=== PATIENT | female | born 1935 | race Caucasian/White ===

== ENCOUNTER 2024-07-07 11:51 | Observation (INO) | payer OTHER ==
--- NOTE | 2024-07-07 12:23 | ERPHSYRPT ---
- History of Present Illness Time Seen by Provider: 07/07/24 12:22 Source: patient, family Exam Limitations: no limitations Patient Subjective Stated Complaint: episode of lightheadedness 30 mins ago. see triage nursing assessment for further details. Triage Nursing Assessment: . Physician History: Patient presents to the ED after a near-syncopal episode this morning while eating breakfast. Patient was sitting on a bar stool when they felt like they were going to fall off. A witness reports seeing the patient with a glazed-over look, unresponsiveness, and repetitive speech, as if reading from their phone. This episode lasted approximately three minutes, followed by a few minutes of confusion. The patient denies any associated weakness, dysphagia, dysarthria, chest pain, abdominal pain, nausea, or recent illness. Timing/Duration: today Severity: mild Modifying Factors: Improves With: rest Associated Symptoms: No nausea, No vomiting, No abdominal pain, No shortness of breath, No diaphoresis, No cough, No chest pain, No fever, No headaches, No loss of appetite, No malaise, No syncope, No weakness Allergies/Adverse Reactions: No Known Drug Allergies Allergy (Unverified 07/07/24 12:11) Hx Influenza Vaccination/Date Given: Yes Travel Risk - International Travel Have you traveled outside of the country in past 3 weeks: No - Emerging Infectious Disease Are you exhibiting symptoms associated with any current EIDs: No - Review of Systems All Other Systems: Reviewed and Negative - Past Medical History Pertinent Past Medical History: Yes Neurological History: No Pertinent History Cardiac History: Myocardial Infarction (PR) Respiratory History: No Pertinent History Musculoskeletal History: No Pertinent History GI Medical History: No Pertinent History History: No Pertinent History Psycho-Social History: No Pertinent History Female Reproductive Disorders: No Pertinent History - Past Surgical History Past Surgical History: Yes Cardiac: Cardiac Stent Gastrointestinal: No Pertinent History Genitourinary: No Pertinent History Musculoskeletal: Orthopedic Surgery Other Surgical History: pins in one shoulder, unsure which - Social History Smoking Status: Never smoker Exposure to second hand smoke: No Drug Use: none - Nursing Vital Signs Nursing Vital Signs: Initial Vital Signs Pulse Rate 85 07/07/24 12:00 Respiratory Rate 21 07/07/24 12:00 Blood Pressure 207/88 07/07/24 12:00 O2 Sat by Pulse Oximetry 91 L 07/07/24 12:00 Pain Scale Pain Intensity 5 - Physical Exam General Appearance: no apparent distress, thin Eye Exam: PERRL/EOMI, eyes nml inspection Ears, Nose, Throat Exam: normal ENT inspection Neck Exam: normal inspection, supple, full range of motion Respiratory Exam: normal breath sounds, lungs clear, airway intact, No res piratory distress Cardiovascular Exam: regular rate/rhythm, normal heart sounds, capillary refill <2 sec, No edema Gastrointestinal/Abdomen Exam: soft, No tenderness, No distention, No mass, No guarding, No rebound Extremity Exam: swelling, No tenderness Neurologic Exam: alert, oriented x 3, cooperative, sample sawyer II-XII nml as tested, normal mood/affect, nml cerebellar function, sensation nml, No confusion Skin Exam: normal color, warm, dry, No rash SpO2 Interpretation: normal SpO2: 98 O2 Delivery: Room Air - Course Nursing assessment & vital signs reviewed: Yes EKG Interpreted by Me: RATE (93), Sinus Rhythm, NORMAL AXIS, NORMAL INTERVALS, Other (repolarizastion abnormality, old inferior infarct) Ordered Tests: Active Orders 24 hr Category Date Time Status EKG-ER Only STAT Care 07/07/24 12:28 Active IV Insertion STAT Care 07/07/24 12:[address] ANGIOGRAPHY NECK [CT] Stat Exams 07/07/24 14:17 Completed CTA HEAD W AND/OR WO CONTRAST [CT] Stat Exams 07/07/24 14:17 Completed CBC W DIFF Stat Lab 07/07/24 12:40 Completed CK-Creatinine Phosphokinase Stat Lab 07/07/24 13:00 Completed CMP Stat Lab 07/07/24 13:00 Completed CULTURE,URINE Stat Lab 07/07/24 13:04 Received Lactic Acid Routine Lab 07/07/24 13:06 Completed Lactic Acid Stat Lab 07/07/24 12:41 Completed MAGNESIUM Stat Lab 07/07/24 13:00 Completed POCT GLUCOSE Stat Lab 07/07/24 12:02 Completed POCT GLUCOSE Stat Lab 07/07/24 12:46 Completed TROPONIN Q4H Lab 07/07/24 13:00 Completed TROPONIN Q4H Lab 07/07/24 16:45 Ordered TROPONIN Q4H Lab 07/07/24 20:45 Ordered TSH, 3RD Generation Stat Lab 07/07/24 13:00 Completed Medication Summary Discontinued Medications Generic Name Dose Route Start Last Admin Trade Name Freq PRN Reason Stop Dose Admin Sodium Chloride 1,000 mls @ 999 mls/hr 07/07/24 12:28 07/07/24 14:03 Sodium Chloride 0.9% 1000 Ml IV 07/07/24 13:28 Infused .Q1H1M STA Infusion Sodium Chloride Confirm 07/07/24 12:43 Sodium Chloride 0.9% 1000 Ml Administered 07/07/24 12:44 Dose 1,000 mls @ ud .ROUTE .STK-MED ONE Ceftriaxone Sodium 1 gm in 100 mls @ 200 mls/hr 07/07/24 14:10 07/07/24 14:27 Rocephin 1 Gm / 100 Ml Nacl IV 07/07/24 14:39 200 mls/hr STAT ONE 200 mls/hr Administration Ceftriaxone Sodium Confirm 07/07/24 14:25 Rocephin 1 Gm / 100 Ml Nacl Administered 07/07/24 14:26 Dose 1 gm in 100 mls @ ud IV .STK-MED ONE Lab/Rad Data: Laboratory Result Diagrams 07/07/24 12:40 07/07/24 13:00 Laboratory Results 07/07/24 07/07/24 07/07/24 Range/Units 13:06 13:04 13:00 WBC (3.98-10.04) x10^3/uL RBC (3.93-5.22) x10^6/uL Hgb (11.2-15.7) g/dL Hct (34.1-44.9) % MCV (79.4-94.8) fL MCH (25.6-32.2) pg MCHC (32.2-35.5) g/dL RDW (11.7-14.4) % Plt Count (182-369) x10^3/uL Gran % (34.0-71.1) % Immature Gran % (Auto) (0.001-0.429) % Nucleat RBC Rel Count (0.00-0.2) % Eos # (Auto) (0.04-0.36) x10^3/uL Immature Gran # (Auto) (0.001-0.031) x10^3u/L Absolute Lymphs (auto) (1.18-3.74) x10^3/uL Absolute Monos (auto) (0.24-0.86) x10^3/uL Absolute Nucleated RBC (0.00-0.012) x10^3u/L Lymphocytes % (19.3-51.7) % Monocytes % (4.7-12.5) % Eosinophils % (0.7-5.8) % Basophils % (0.1-1.2) % Absolute Granulocytes (1.56-6.13) x10^3/uL Basophils # (0.01-0.08) x10^3/uL Sodium (135-145) mmol/L Potassium (3.5-5.1) mmol/L Chloride (98-107) mmol/L Carbon Dioxide (22-30) mmol/L Anion Gap (5-15) MEQ/L BUN (7-17) mg/dL Creatinine (0.52-1.04) mg/dL Estimated GFR ML/MIN Glucose (74-106) mg/dL POC Glucometer (74 to 106) mg/dL Lactic Acid 1.5 (0.4-2.0) Calcium (8.4-10.2) mg/dL Magnesium (1.6-2.3) mg/dL Total Bilirubin (0.2-1.3) mg/dL AST (14-36) U/L ALT (0-35) U/L Alkaline Phosphatase (38-126) U/L Creatine Kinase (30-135) U/L Troponin I (0.000-0.033) ng/mL Serum Total Protein (6.3-8.2) g/dL Albumin (3.5-5.0) g/dL Free T4 1.34 (0.78-2.19) ng/dL TSH 3rd Generation (0.470-4.680) mIU/L Urine Color YELLOW (YELLOW) Urine Appearance CLEAR (CLEAR) Urine pH 6.0 (5-6) Ur Specific [place] 1.020 (1.005-1.025) POC Urine Protein Conf TRACE A (Negative) Urine Ketones NEGATIVE (NEGATIVE) Urine Nitrite NEGATIVE (NEGATIVE) Urine Bilirubin NEGATIVE (NEGATIVE) Urine Urobilinogen 0.2 (0-1) mg/dL Urine Leukocytes SMALL A (NEGATIVE) Urine RBC TRACE-INTACT A (0-5) [place]/ul Urine Microscopic RBC 0-2 (0-5) /HPF Urine Microscopic WBC 3-5 (0-5) /HPF Ur Epithelial Cells Few (None Seen) /HPF U Non-Squamous Epi Cells None Seen (None Seen) /HPF Urine Bacteria Few A (None Seen) /HPF Urine Culture Reflexed YES (NO) Urine Glucose NEGATIVE (NEGATIVE) mg/dL 07/07/24 07/07/24 07/07/24 Range/Units 13:00 13:00 12:46 WBC (3.98-10.04) x10^3/uL RBC (3.93-5.22) x10^6/uL Hgb (11.2-15.7) g/dL Hct (34.1-44.9) % MCV (79.4-94.8) fL MCH (25.6-32.2) pg MCHC (32.2-35.5) g/dL RDW (11.7-14.4) % Plt Count (182-369) x10^3/uL Gran % (34.0-71.1) % Immature Gran % (Auto) (0.001-0.429) % Nucleat RBC Rel Count (0.00-0.2) % Eos # (Auto) (0.04-0.36) x10^3/uL Immature Gran # (Auto) (0.001-0.031) x10^3u/L Absolute Lymphs (auto) (1.18-3.74) x10^3/uL Absolute Monos (auto) (0.24-0.86) x10^3/uL Absolute Nucleated RBC (0.00-0.012) x10^3u/L Lymphocytes % (19.3-51.7) % Monocytes % (4.7-12.5) % Eosinophils % (0.7-5.8) % Basophils % (0.1-1.2) % Absolute Granulocytes (1.56-6.13) x10^3/uL Basophils # (0.01-0.08) x10^3/uL Sodium 140 (135-145) mmol/L Potassium 4.7 (3.5-5.1) mmol/L Chloride 102 (98-107) mmol/L Carbon Dioxide 30 (22-30) mmol/L Anion Gap 13.2 (5-15) MEQ/L BUN 17 (7-17) mg/dL Creatinine 0.75 (0.52-1.04) mg/dL Estimated GFR 77.0 ML/MIN Glucose 149 H (74-106) mg/dL POC Glucometer 171 H (74 to 106) mg/dL Lactic Acid (0.4-2.0) Calcium 8.8 (8.4-10.2) mg/dL Magnesium 1.9 (1.6-2.3) mg/dL Total Bilirubin 0.40 (0.2-1.3) mg/dL AST 31 (14-36) U/L ALT 19 (0-35) U/L Alkaline Phosphatase 54 (38-126) U/L Creatine Kinase 25 L (30-135) U/L Troponin I 0.015 (0.000-0.033) ng/mL Serum Total Protein 6.5 (6.3-8.2) g/dL Albumin 4.0 (3.5-5.0) g/dL Free T4 (0.78-2.19) ng/dL TSH 3rd Generation 1.606 (0.470-4.680) mIU/L Urine Color (YELLOW) Urine Appearance (CLEAR) Urine pH (5-6) Ur Specific [place] (1.005-1.025) POC Urine Protein Conf (Negative) Urine Ketones (NEGATIVE) Urine Nitrite (NEGATIVE) Urine Bilirubin (NEGATIVE) Urine Urobilinogen (0-1) mg/dL Urine Leukocytes (NEGATIVE) Urine RBC (0-5) [place]/ul Urine Microscopic RBC (0-5) /HPF Urine Microscopic WBC (0-5) /HPF Ur Epithelial Cells (None Seen) /HPF U Non-Squamous Epi Cells (None Seen) /HPF Urine Bacteria (None Seen) /HPF Urine Culture Reflexed (NO) Urine Glucose (NEGATIVE) mg/dL 07/07/24 07/07/24 07/07/24 Range/Units 12:41 12:40 12:02 WBC 5.5 (3.98-10.04) x10^3/uL RBC 5.25 H (3.93-5.22) x10^6/uL Hgb 11.2 (11.2-15.7) g/dL Hct 37.8 (34.1-44.9) % MCV 72.0 L (79.4-94.8) fL MCH 21.3 L (25.6-32.2) pg MCHC 29.6 L (32.2-35.5) g/dL RDW 19.9 H (11.7-14.4) % Plt Count 235 (182-369) x10^3/uL Gran % 51.5 (34.0-71.1) % Immature Gran % (Auto) 0.2 (0.001-0.429) % Nucleat RBC Rel Count 0.0 (0.00-0.2) % Eos # (Auto) 0.17 (0.04-0.36) x10^3/uL Immature Gran # (Auto) 0.01 (0.001-0.031) x10^3u/L Absolute Lymphs (auto) 1.80 (1.18-3.74) x10^3/uL Absolute Monos (auto) 0.67 (0.24-0.86) x10^3/uL Absolute Nucleated RBC 0.00 (0.00-0.012) x10^3u/L Lymphocytes % 32.6 (19.3-51.7) % Monocytes % 12.1 (4.7-12.5) % Eosinophils % 3.1 (0.7-5.8) % Basophils % 0.5 (0.1-1.2) % Absolute Granulocytes 2.84 (1.56-6.13) x10^3/uL Basophils # 0.03 (0.01-0.08) x10^3/uL Sodium (135-145) mmol/L Potassium (3.5-5.1) mmol/L Chloride (98-107) mmol/L Carbon Dioxide (22-30) mmol/L Anion Gap (5-15) MEQ/L BUN (7-17) mg/dL Creatinine (0.52-1.04) mg/dL Estimated GFR ML/MIN Glucose (74-106) mg/dL POC Glucometer 138 H (74 to 106) mg/dL Lactic Acid 2.7 H (0.4-2.0) Calcium (8.4-10.2) mg/dL Magnesium (1.6-2.3) mg/dL Total Bilirubin (0.2-1.3) mg/dL AST (14-36) U/L ALT (0-35) U/L Alkaline Phosphatase (38-126) U/L Creatine Kinase (30-135) U/L Troponin I (0.000-0.033) ng/mL Serum Total Protein (6.3-8.2) g/dL Albumin (3.5-5.0) g/dL Free T4 (0.78-2.19) ng/dL TSH 3rd Generation (0.470-4.680) mIU/L Urine Color (YELLOW) Urine Appearance (CLEAR) Urine pH (5-6) Ur Specific [place] (1.005-1.025) POC Urine Protein Conf (Negative) Urine Ketones (NEGATIVE) Urine Nitrite (NEGATIVE) Urine Bilirubin (NEGATIVE) Urine Urobilinogen (0-1) mg/dL Urine Leukocytes (NEGATIVE) Urine RBC (0-5) [place]/ul Urine Microscopic RBC (0-5) /HPF Urine Microscopic WBC (0-5) /HPF Ur Epithelial Cells (None Seen) /HPF U Non-Squamous Epi Cells (None Seen) /HPF Urine Bacteria (None Seen) /HPF Urine Culture Reflexed (NO) Urine Glucose (NEGATIVE) mg/dL - Progress Progress: improved Progress Note: Differential Diagnosis: Transient ischemic attack Orthostatic hypotension Hypoglycemia Other Due to the chief complaint, the following diagnoses were also considered but the signs/symptoms, physical exam, and data points are not consistent with any of the following: Rationale for Diagnosis and Decision Making: Patient presented with a near- syncopal episode. Based on the history, physical exam, and normal laboratory workup including cardiac enzymes, a transient ischemic attack, orthostatic hypotension, and hypoglycemia were considered. The EKG was consistent with prior PR. Later, the patient developed weakness and a urinalysis showed signs of a UTI. Given the patient's acute weakness and potential UTI, the decision was made to administer one dose of IV antibiotics in the ED and discharge the patient home on oral antibiotics. Shared decision making was utilized with the patient and family, and they agreed with the plan. The patient was discharged. Independent Test Interpretations: EKG Interpretation: EKG consistent with prior PR. Labs: Hemoglobin, WBC, platelets, electrolytes (including potassium and magnesium), renal function, cardiac enzymes, and thyroid function tests are all within normal limits. Urinalysis shows small amount of bacteria and leukocytes. Assessment: 89-year-old patient presenting with new-onset weakness, significant enough to impair ambulation to the restroom. Patient reports feeling weak. Den ies dyspnea, cough, or productive sputum. Neurologic exam is normal, without focal deficits. Differential diagnosis includes UTI. Although urinalysis findings are present, provider is not convinced this fully explains the patient's weakness. No evidence of stroke. Patient reports urinary urgency with inability to void, which may be consistent with a UTI. Plan: Given patient's acute weakness and potential UTI, decision made to administer one dose of IV antibiotics in the ED. Patient will be discharged home on oral antibiotics. Family advised to return if patient's condition worsens or new symptoms develop. Patient and family agree with plan. When patient was getting up to use commode she was unstable and drifting to the side, with her abrupt onset on sxs today and lack of true cause on labs today we will order a CTA head/neck to r/o posterior stroke. 07/07/24 16:25 CTA head/neck neg for acute CVA, old infarcts noted. No other acute findings. Counseled pt/family regarding: lab results, diagnosis, need for follow-up, rad results - Departure Departure Disposition: Home Clinical Impression: UTI (urinary tract infection), History of acoustic neuroma, Confusion, Difficulty initiating walking Condition: Good Critical Care Time: No Referrals: DOCTOR,NO FAMILY [Primary Care Provider] - Follow up/PCP as directed Instructions: Urinary tract infections in adults Prescriptions: Cefdinir 300 mg PO BID 7 Days #14 cap
[2024-07-07 12:43] LABS: Absolute Neutrophil Ct (ANC) 2.84 x10^3/uL (1.56-6.13); BASOPHIL % 0.5 % (0.1-1.2); Basophil (Absolute #) 0.03 x10^3/uL (0.01-0.08); Eosinophil % 3.1 % (0.7-5.8); Eosinophil (Absolute #) 0.17 x10^3/uL (0.04-0.36); Hematocrit 37.8 % (34.1-44.9); Hemoglobin 11.2 g/dL (11.2-15.7); IMMATURE GRAN # 0.01 x10^3u/L (0.001-0.031); IMMATURE GRAN % 0.2 % (0.001-0.429); Lymphocytes % 32.6 % (19.3-51.7); Mean Corpuscular Hemoglobin 21.3 pg (25.6-32.2); Mean Corpuscular Hgb Concent. 29.6 g/dL (32.2-35.5); Monocyte (Absolute #) 0.67 x10^3/uL (0.24-0.86); Monocytes % 12.1 % (4.7-12.5); Neutrophil % 51.5 % (34.0-71.1); Platelet Count 235 x10^3/uL (182-369); Red Blood Count 5.25 x10^6/uL (3.93-5.22); Red Cell Distribution Width 19.9 % (11.7-14.4); White Blood Count 5.5 x10^3/uL (3.98-10.04)
[2024-07-07] MEDS ORDERED: Sodium Chloride 0.9% 1000 ML 1,000 ML ONE (12:43)
[2024-07-07] MEDS: Sodium Chloride 0.9% 1000 ML 1,000 ML IV STA (12:44)
[2024-07-07 13:27] LABS: Appearance CLEAR (CLEAR); Bilirubin NEGATIVE (NEGATIVE); Glucose NEGATIVE (NEGATIVE); Ketones NEGATIVE (NEGATIVE); Nitrite NEGATIVE (NEGATIVE); Protein,Urine Dip TRACE (Negative); RBC TRACE-INTACT Ery/ul (0-5); Urobilinogen 0.2 mg/dL (0-1)
[2024-07-07 13:29] LABS: ANION GAP 13.2 MEQ/L (5-15); BILIRUBIN,TOTAL 0.4 mg/dL (0.2-1.3); Calcium 8.8 mg/dL (8.4-10.2); Creatinine 1 0.75 mg/dL (0.52-1.04); MAGNESIUM 1.9 mg/dL (1.6-2.3); Potassium 4.7 mmol/L (3.5-5.1); Total Protein 6.5 g/dL (6.3-8.2)
[2024-07-07 13:40] LABS: Epithelial Cells Few /HPF (None Seen); RBC 0-2 /HPF (0-5)
[2024-07-07 13:41] LABS: Bacteria Few /HPF (None Seen); Non-Squamous Epithelial Cells None Seen /HPF (None Seen)
[2024-07-07 13:41] LABS: TROPONIN 0.015 ng/mL (0.000-0.033)
[2024-07-07 13:58] LABS: TSH, 3RD Generation 1.606 mIU/L (0.470-4.680)
[2024-07-07] MEDS ORDERED: ROCEPHIN 1 GM / 100 ML NaCl 1 GM/100 ML IVPB IV ONE (14:25)
[2024-07-07] MEDS: ROCEPHIN 1 GM / 100 ML NaCl 1 GM/100 ML IVPB IV ONE (14:27)
--- NOTE | 2024-07-07 16:14 | XRAY ---
CLINICAL HISTORY: dizziness COMPARISON: None. TECHNIQUE: CT angiography of the head and neck was performed following the intravenous administration of iodinated contrast material. Contiguous axial images were obtained from the aortic arch to the vertex. Coronal and sagittal reformatted images were also reviewed. One of these 3D techniques was utilized: Maximum Intensity Pixel (MIP), 3D Reconstructed Images, Volume Rendered Images, Surface Shaded Rendering. One of the following dose reduction techniques was utilized for this exam. Automated exposure control, adjustment of the mA and/or kV according to patient size, and use of iterative reconstruction. FINDINGS: Head: Intracranial Arteries: Diffuse calcified atherosclerotic changes of the bilateral internal carotid arteries are causing mild stenosis (20-30% stenosis on right side and 30-40% on left side) of the cavernous portion of the internal carotid arteries. The intracranial arteries, including the anterior cerebral arteries, middle cerebral arteries, posterior cerebral arteries, basilar artery, and vertebral arteries, are all patent without evidence of significant stenosis, aneurysm, or dissection. There is no evidence of vascular malformations. [place]: The [place] is intact, with no anatomical variations or abnormalities noted. All segments are well-visualized and normal in appearance. Venous System: The visualized portions of the venous system, including the dural venous sinuses, are patent with no evidence of thrombosis. Brain Parenchyma: The brain parenchyma shows no evidence of acute infarct, hemorrhage, or mass effect. Multiple hypodensities are appreciated in bilateral periventricular and subcortical deep white matter, suggesting microvascular ischemic disease. Right parietal wedge-shaped cortical and subcortical hypodensity indicating old infarction. 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 Mild involutional age-related brain changes in the form of parenchymal volume deep sulci. Bones: The bony structures of the skull are intact without evidence of fracture or destructive lesions. Soft Tissues: The visualized soft tissues of the head are unremarkable. Neck: Carotid Arteries: Mild ectatic dilatation of the ascending thoracic aorta measuring 3.8 x 3.6 cm. The proximal part of the left common carotid artery harbors a retroesophageal and retropharyngeal course while indenting the right oropharyngeal wall. Bilateral calcified atherosclerotic changes seen at the carotid bulbs cause insignificant narrowing, about 20-30% stenosis bilaterally evident to more on the right side. The common, internal, and external carotid arteries are patent bilaterally with no evidence of aneurysm or dissection. Vertebral Arteries: The vertebral arteries are patent bilaterally with no evidence of significant stenosis, aneurysm, or dissection. Thyroid Gland: The thyroid gland is normal in size. Left lobe 1.3x0.8 cm calcification. Lymph Nodes: There is no evidence of significant lymphadenopathy in the neck. Soft Tissues: The soft tissues of the neck are unremarkable, with no evidence of masses or abnormal collections. Additional Findings: moderate dextroscolisis of the upper thoracic vertebrae. Grade 1 anterolisthesis of C3 over C4. Moderate spondylosis of the scanned cervical vertebrae. IMPRESSION: 1. No evidence of significant vascular abnormalities, acute infarct, or hemorrhage. 2. Diffuse calcified atherosclerotic changes of the bilateral internal carotid arteries are causing mild stenosis (20-30% stenosis on right side and 30-40% on left side) of the cavernous portion of the internal carotid arteries. 3. The proximal part of the left common carotid artery harbors a retroesophageal and retropharyngeal course while indenting the right oropharyngeal wall. 4. Bilateral calcified atherosclerotic changes seen at the carotid bulbs cause insignificant narrowing, about 20-30% stenosis bilaterally evident to more on the right side. 5. Hypoplastic right vertebral artery 6. Right parietal wedge-shaped cortical and subcortical hypodensity indicating old infarction. 7. 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 8. Mild involution age-related brain changes with mild deep white matter microvessle ischemia. Electronically Signed by: Hubert Mae MD. (07/07/2024 16:09:02 EDT)
--- NOTE | 2024-07-07 16:16 | XRAY ---
CLINICAL HISTORY: dizziness COMPARISON: None. TECHNIQUE: CT angiography of the head and neck was performed following the intravenous administration of iodinated contrast material. Contiguous axial images were obtained from the aortic arch to the vertex. Coronal and sagittal reformatted images were also reviewed. 80 cc of isovue 370 was administered intravenously. One of these 3D techniques was utilized: Maximum Intensity Pixel (MIP), 3D Reconstructed Images, Volume Rendered Images, Surface Shaded Rendering. One of the following dose reduction techniques was utilized for this exam. Automated exposure control, adjustment of the mA and/or kV according to patient size, and use of iterative reconstruction. DLP: 1689.02 mGy-cm, CTDI: 90.5 mGy. FINDINGS: Head: Intracranial Arteries: Diffuse calcified atherosclerotic changes of the bilateral internal carotid arteries are causing mild stenosis (20-30% stenosis on right side and 30-40% on left side) of the cavernous portion of the internal carotid arteries. The intracranial arteries, including the anterior cerebral arteries, middle cerebral arteries, posterior cerebral arteries, basilar artery, and vertebral arteries, are all patent without evidence of significant stenosis, aneurysm, or dissection. There is no evidence of vascular malformations. [place]: The [place] is intact, with no anatomical variations or abnormalities noted. All segments are well-visualized and normal in appearance. Venous System: The visualized portions of the venous system, including the dural venous sinuses, are patent with no evidence of thrombosis. Brain Parenchyma: The brain parenchyma shows no evidence of acute infarct, hemorrhage, or mass effect. Multiple hypodensities are appreciated in bilateral periventricular and subcortical deep white matter, suggesting microvascular ischemic disease. Right parietal wedge-shaped cortical and subcortical hypodensity indicating old infarction. 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 Mild involutional age-related brain changes in the form of parenchymal volume deep sulci. Bones: The bony structures of the skull are intact without evidence of fracture or destructive lesions. Soft Tissues: The visualized soft tissues of the head are unremarkable. Neck: Carotid Arteries: Mild ectatic dilatation of the ascending thoracic aorta measuring 3.8 x 3.6 cm. The proximal part of the left common carotid artery harbors a retroesophageal and retropharyngeal course while indenting the right oropharyngeal wall. Bilateral calcified atherosclerotic changes seen at the carotid bulbs cause insignificant narrowing, about 20-30% stenosis bilaterally evident to more on the right side. The common, internal, and external carotid arteries are patent bilaterally with no evidence of aneurysm or dissection. Vertebral Arteries: The vertebral arteries are patent bilaterally with no evidence of significant stenosis, aneurysm, or dissection. Thyroid Gland: The thyroid gland is normal in size. Left lobe 1.3x0.8 cm calcification. Lymph Nodes: There is no evidence of significant lymphadenopathy in the neck. Soft Tissues: The soft tissues of the neck are unremarkable, with no evidence of masses or abnormal collections. Additional Findings: moderate dextroscolisis of the upper thoracic vertebrae. Grade 1 anterolisthesis of C3 over C4. Moderate spondylosis of the scanned cervical vertebrae. IMPRESSION: 1. No evidence of significant vascular abnormalities, acute infarct, or hemorrhage. 2. Diffuse calcified atherosclerotic changes of the bilateral internal carotid arteries are causing mild stenosis (20-30% stenosis on the right side and 30-40% on left side) of the cavernous portion of the internal carotid arteries. 3. The proximal part of the left common carotid artery harbors a retroesophageal and retropharyngeal course while indenting the right oropharyngeal wall. 4. Hypoplastic right vertebral artery 5. Bilateral calcified atherosclerotic changes seen at the carotid bulbs cause insignificant narrowing, about 20-30% stenosis bilaterally evident to more on the right side. 6. Right parietal wedge-shaped cortical and subcortical hypodensity indicating old infarction. 7. 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 8. Mild involution age-related brain changes with mild deep white matter microvessle ischemia. Electronically Signed by: Hubert Mae MD. (07/07/2024 16:12:17 EDT)
--- NOTE | 2024-07-07 17:26 | PCM.HP ---
<YELENAJEREMY Beck - Last Filed: 07/07/24 17:54> History of Present Illness - Chief Complaint Chief Complaint: near syncopal episode Date: 07/07/24 History of Present Illness: is a 89 year old female with a pmhx of MD x 2 and cardiac stents who presented to the ED 07/07/24 after a near-syncopal episode at breakfast witness by her daughter. The patient was sitting on a bar stool when she suddenly felt like she was going to fall. Her daughter describes the episode as the patient as having a glazed look, being unresponsive, unable to follow commands, and speaking repetitively. The episode lasted around three minutes, followed by a few minutes of confusion. Patient was noted to be leaning to the left and with weakness making ambulation difficult. The patient denies chest pain, shortness of breath, nausea, vomiting, or recent illness. There is no known history of seizures. 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 No prior episodes of vertigo, imbalance, or neurologic symptoms have been reported in relation to this. 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 On arrival, vital signs were notable for significantly elevated blood pressure at 207/88 mmHg. EKG showed old MD but no acute changes. Labs including CBC, CMP, and TSH were unremarkable. UA showed small leukocyte esterase and trace bacteria, raising concern for a possible UTI. CTA head and neck was performed to rule out posterior stroke. 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 When attempting to get up to use the commode, the patient was visibly unsteady and drifted to the left side. She also endorsed new generalized weakness and urinary urgency with difficulty voiding. Ceftriaxone and fluid bolus given in ED. Admit for near syncopal episode and weakness. Plan includes neurology consultation, telemetry monitoring, and empiric IV antibiotics for possible UTI. - Review of Systems Constitutional: Weakness Eyes: No Symptoms Ears, Nose, & Throat: No Symptoms Respiratory: No Symptoms Cardiac: No Symptoms Abdominal/Gastrointestinal: No Symptoms Genitourinary Symptoms: No Symptoms Musculoskeletal: No Symptoms Skin: No Symptoms Neurological: Gait Changes, Speech Changes Psychological: No Symptoms Endocrine: No Symptoms Hematologic/Lymphatic: No Symptoms Medications & Allergies Home Medications: Home Medication List Azelastine/Fluticasone [Azelastin-Flutic 137-50Mcg Spr] 1 spray IH BID 07/07/24 [History Confirmed 07/07/24] Cefdinir 300 mg PO BID 7 Days #14 cap 07/07/24 [Rx] Allergies/Adverse Reactions: Allergies Allergy/AdvReac Type Severity Reaction Status Date / Time No Known Drug Allergies Allergy Unverified 07/07/24 12:11 - Past Medical History Past Medical History: Yes Neurological History: No Pertinent History ENT History: Other Cardiac History: Myocardial Infarction (MD) Respiratory History: No Pertinent History Endocrine Medical History: No Pertinent History Musculoskelatal History: No Pertinent History GI Medical History: No Pertinent History History: No Pertinent History Pyscho-Social History: No Pertinent History Reproductive Disorders: No Pertinent History Comment: Acoustic Neuroma of L ear. Deaf in L ear. - Past Surgical History Past Surgical History: Yes Cardiac History: Cardiac Stent GI Surgical History: No Pertinent History Genitourinary Surgical Hx: No Pertinent History Musculskeletal Surgical Hx: Orthopedic Surgery Other Surgical History: pins in one shoulder, unsure which Significant Family History: heart disease - Social History Smoking Status: Never smoker Exposure to second hand smoke: No Alcohol: Occasionally Drug Use: none - Physical Exam Vital Signs: Vital Signs - 24 hr Pulse Resp BP BP Pulse Ox 07/07/24 16:45 93 H 22 193/100 94 L 07/07/24 16:30 90 21 155/80 95 07/07/24 16:27 98 07/07/24 16:15 84 28 H 177/92 91 L 07/07/24 16:00 86 21 176/99 94 L 07/07/24 15:45 88 20 170/91 92 L 07/07/24 15:30 88 22 175/101 94 L 07/07/24 15:24 96 H 20 170/107 07/07/24 15:18 96 H 21 193/103 94 L 07/07/24 14:30 85 20 196/83 95 07/07/24 14:23 84 21 94 L 07/07/24 14:01 67 21 149/74 96 07/07/24 13:45 71 21 160/81 96 07/07/24 13:37 68 21 167/67 94 L 07/07/24 13:30 66 20 98 07/07/24 13:20 65 22 94 L 07/07/24 13:17 67 22 94 L 07/07/24 12:45 71 22 158/77 99 07/07/24 12:30 77 21 169/92 95 07/07/24 12:15 85 22 181/100 98 07/07/24 12:01 96 H 16 207/88 98 07/07/24 12:00 85 21 207/88 91 L General Appearance: no apparent distress Neurologic Exam: alert, oriented x 3, cooperative, 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 nml as tested, other (LUE strength 2/5 RUE 5/5 BLE 5/5) Eye Exam: PERRL/EOMI Ears, Nose, Throat Exam: normal ENT inspection Neck Exam: normal inspection Respiratory Exam: normal breath sounds, lungs clear Cardiovascular Exam: regular rate/rhythm, normal heart sounds Gastrointestinal/Abdomen Exam: soft, normal bowel sounds Pelvic Exam: not done Rectal Exam: deferred Back Exam: normal inspection Extremity Exam: normal inspection, normal range of motion Skin Exam: normal color Results - Labs Lab/Micro Results: Lab Results-Last 24 Hours 07/07/24 07/07/24 07/07/24 Range/Units 12:02 12:40 12:41 WBC 5.5 (3.98-10.04) x10^3/uL RBC 5.25 H (3.93-5.22) x10^6/uL Hgb 11.2 (11.2-15.7) g/dL Hct 37.8 (34.1-44.9) % MCV 72.0 L (79.4-94.8) fL MCH 21.3 L (25.6-32.2) pg MCHC 29.6 L (32.2-35.5) g/dL RDW 19.9 H (11.7-14.4) % Plt Count 235 (182-369) x10^3/uL Gran % 51.5 (34.0-71.1) % Immature Gran % (Auto) 0.2 (0.001-0.429) % Nucleat RBC Rel Count 0.0 (0.00-0.2) % Eos # (Auto) 0.17 (0.04-0.36) x10^3/uL Immature Gran # (Auto) 0.01 (0.001-0.031) x10^3u/L Absolute Lymphs (auto) 1.80 (1.18-3.74) x10^3/uL Absolute Monos (auto) 0.67 (0.24-0.86) x10^3/uL Absolute Nucleated RBC 0.00 (0.00-0.012) x10^3u/L Lymphocytes % 32.6 (19.3-51.7) % Monocytes % 12.1 (4.7-12.5) % Eosinophils % 3.1 (0.7-5.8) % Basophils % 0.5 (0.1-1.2) % Absolute Granulocytes 2.84 (1.56-6.13) x10^3/uL Basophils # 0.03 (0.01-0.08) x10^3/uL Sodium (135-145) mmol/L Potassium (3.5-5.1) mmol/L Chloride (98-107) mmol/L Carbon Dioxide (22-30) mmol/L Anion Gap (5-15) MEQ/L BUN (7-17) mg/dL Creatinine (0.52-1.04) mg/dL Estimated GFR ML/MIN Glucose (74-106) mg/dL POC Glucometer 138 H (74 to 106) mg/dL Lactic Acid 2.7 H (0.4-2.0) Calcium (8.4-10.2) mg/dL Magnesium (1.6-2.3) mg/dL Total Bilirubin (0.2-1.3) mg/dL AST (14-36) U/L ALT (0-35) U/L Alkaline Phosphatase (38-126) U/L Creatine Kinase (30-135) U/L Troponin I (0.000-0.033) ng/mL Serum Total Protein (6.3-8.2) g/dL Albumin (3.5-5.0) g/dL Free T4 (0.78-2.19) ng/dL TSH 3rd Generation (0.470-4.680) mIU/L Urine Color (YELLOW) Urine Appearance (CLEAR) Urine pH (5-6) Ur Specific Mather (1.005-1.025) POC Urine Protein Conf (Negative) Urine Ketones (NEGATIVE) Urine Nitrite (NEGATIVE) Urine Bilirubin (NEGATIVE) Urine Urobilinogen (0-1) mg/dL Urine Leukocytes (NEGATIVE) Urine RBC (0-5) Kenyon/ul Urine Microscopic RBC (0-5) /HPF Urine Microscopic WBC (0-5) /HPF Ur Epithelial Cells (None Seen) /HPF U Non-Squamous Epi Cells (None Seen) /HPF Urine Bacteria (None Seen) /HPF Urine Culture Reflexed (NO) Urine Glucose (NEGATIVE) mg/dL 07/07/24 07/07/24 07/07/24 Range/Units 12:46 13:00 13:00 WBC (3.98-10.04) x10^3/uL RBC (3.93-5.22) x10^6/uL Hgb (11.2-15.7) g/dL Hct (34.1-44.9) % MCV (79.4-94.8) fL MCH (25.6-32.2) pg MCHC (32.2-35.5) g/dL RDW (11.7-14.4) % Plt Count (182-369) x10^3/uL Gran % (34.0-71.1) % Immature Gran % (Auto) (0.001-0.429) % Nucleat RBC Rel Count (0.00-0.2) % Eos # (Auto) (0.04-0.36) x10^3/uL Immature Gran # (Auto) (0.001-0.031) x10^3u/L Absolute Lymphs (auto) (1.18-3.74) x10^3/uL Absolute Monos (auto) (0.24-0.86) x10^3/uL Absolute Nucleated RBC (0.00-0.012) x10^3u/L Lymphocytes % (19.3-51.7) % Monocytes % (4.7-12.5) % Eosinophils % (0.7-5.8) % Basophils % (0.1-1.2) % Absolute Granulocytes (1.56-6.13) x10^3/uL Basophils # (0.01-0.08) x10^3/uL Sodium 140 (135-145) mmol/L Potassium 4.7 (3.5-5.1) mmol/L Chloride 102 (98-107) mmol/L Carbon Dioxide 30 (22-30) mmol/L Anion Gap 13.2 (5-15) MEQ/L BUN 17 (7-17) mg/dL Creatinine 0.75 (0.52-1.04) mg/dL Estimated GFR 77.0 ML/MIN Glucose 149 H (74-106) mg/dL POC Glucometer 171 H (74 to 106) mg/dL Lactic Acid (0.4-2.0) Calcium 8.8 (8.4-10.2) mg/dL Magnesium 1.9 (1.6-2.3) mg/dL Total Bilirubin 0.40 (0.2-1.3) mg/dL AST 31 (14-36) U/L ALT 19 (0-35) U/L Alkaline Phosphatase 54 (38-126) U/L Creatine Kinase 25 L (30-135) U/L Troponin I 0.015 (0.000-0.033) ng/mL Serum Total Protein 6.5 (6.3-8.2) g/dL Albumin 4.0 (3.5-5.0) g/dL Free T4 (0.78-2.19) ng/dL TSH 3rd Generation 1.606 (0.470-4.680) mIU/L Urine Color (YELLOW) Urine Appearance (CLEAR) Urine pH (5-6) Ur Specific Mather (1.005-1.025) POC Urine Protein Conf (Negative) Urine Ketones (NEGATIVE) Urine Nitrite (NEGATIVE) Urine Bilirubin (NEGATIVE) Urine Urobilinogen (0-1) mg/dL Urine Leukocytes (NEGATIVE) Urine RBC (0-5) Kenyon/ul Urine Microscopic RBC (0-5) /HPF Urine Microscopic WBC (0-5) /HPF Ur Epithelial Cells (None Seen) /HPF U Non-Squamous Epi Cells (None Seen) /HPF Urine Bacteria (None Seen) /HPF Urine Culture Reflexed (NO) Urine Glucose (NEGATIVE) mg/dL 07/07/24 07/07/24 07/07/24 Range/Units 13:00 13:04 13:06 WBC (3.98-10.04) x10^3/uL RBC (3.93-5.22) x10^6/uL Hgb (11.2-15.7) g/dL Hct (34.1-44.9) % MCV (79.4-94.8) fL MCH (25.6-32.2) pg MCHC (32.2-35.5) g/dL RDW (11.7-14.4) % Plt Count (182-369) x10^3/uL Gran % (34.0-71.1) % Immature Gran % (Auto) (0.001-0.429) % Nucleat RBC Rel Count (0.00-0.2) % Eos # (Auto) (0.04-0.36) x10^3/uL Immature Gran # (Auto) (0.001-0.031) x10^3u/L Absolute Lymphs (auto) (1.18-3.74) x10^3/uL Absolute Monos (auto) (0.24-0.86) x10^3/uL Absolute Nucleated RBC (0.00-0.012) x10^3u/L Lymphocytes % (19.3-51.7) % Monocytes % (4.7-12.5) % Eosinophils % (0.7-5.8) % Basophils % (0.1-1.2) % Absolute Granulocytes (1.56-6.13) x10^3/uL Basophils # (0.01-0.08) x10^3/uL Sodium (135-145) mmol/L Potassium (3.5-5.1) mmol/L Chloride (98-107) mmol/L Carbon Dioxide (22-30) mmol/L Anion Gap (5-15) MEQ/L BUN (7-17) mg/dL Creatinine (0.52-1.04) mg/dL Estimated GFR ML/MIN Glucose (74-106) mg/dL POC Glucometer (74 to 106) mg/dL Lactic Acid 1.5 (0.4-2.0) Calcium (8.4-10.2) mg/dL Magnesium (1.6-2.3) mg/dL Total Bilirubin (0.2-1.3) mg/dL AST (14-36) U/L ALT (0-35) U/L Alkaline Phosphatase (38-126) U/L Creatine Kinase (30-135) U/L Troponin I (0.000-0.033) ng/mL Serum Total Protein (6.3-8.2) g/dL Albumin (3.5-5.0) g/dL Free T4 1.34 (0.78-2.19) ng/dL TSH 3rd Generation (0.470-4.680) mIU/L Urine Color YELLOW (YELLOW) Urine Appearance CLEAR (CLEAR) Urine pH 6.0 (5-6) Ur Specific Mather 1.020 (1.005-1.025) POC Urine Protein Conf TRACE A (Negative) Urine Ketones NEGATIVE (NEGATIVE) Urine Nitrite NEGATIVE (NEGATIVE) Urine Bilirubin NEGATIVE (NEGATIVE) Urine Urobilinogen 0.2 (0-1) mg/dL Urine Leukocytes SMALL A (NEGATIVE) Urine RBC TRACE-INTACT A (0-5) Kenyon/ul Urine Microscopic RBC 0-2 (0-5) /HPF Urine Microscopic WBC 3-5 (0-5) /HPF Ur Epithelial Cells Few (None Seen) /HPF U Non-Squamous Epi Cells None Seen (None Seen) /HPF Urine Bacteria Few A (None Seen) /HPF Urine Culture Reflexed YES (NO) Urine Glucose NEGATIVE (NEGATIVE) mg/dL 07/07/24 Range/Units 16:20 WBC (3.98-10.04) x10^3/uL RBC (3.93-5.22) x10^6/uL Hgb (11.2-15.7) g/dL Hct (34.1-44.9) % MCV (79.4-94.8) fL MCH (25.6-32.2) pg MCHC (32.2-35.5) g/dL RDW (11.7-14.4) % Plt Count (182-369) x10^3/uL Gran % (34.0-71.1) % Immature Gran % (Auto) (0.001-0.429) % Nucleat RBC Rel Count (0.00-0.2) % Eos # (Auto) (0.04-0.36) x10^3/uL Immature Gran # (Auto) (0.001-0.031) x10^3u/L Absolute Lymphs (auto) (1.18-3.74) x10^3/uL Absolute Monos (auto) (0.24-0.86) x10^3/uL Absolute Nucleated RBC (0.00-0.012) x10^3u/L Lymphocytes % (19.3-51.7) % Monocytes % (4.7-12.5) % Eosinophils % (0.7-5.8) % Basophils % (0.1-1.2) % Absolute Granulocytes (1.56-6.13) x10^3/uL Basophils # (0.01-0.08) x10^3/uL Sodium (135-145) mmol/L Potassium (3.5-5.1) mmol/L Chloride (98-107) mmol/L Carbon Dioxide (22-30) mmol/L Anion Gap (5-15) MEQ/L BUN (7-17) mg/dL Creatinine (0.52-1.04) mg/dL Estimated GFR ML/MIN Glucose (74-106) mg/dL POC Glucometer (74 to 106) mg/dL Lactic Acid (0.4-2.0) Calcium (8.4-10.2) mg/dL Magnesium (1.6-2.3) mg/dL Total Bilirubin (0.2-1.3) mg/dL AST (14-36) U/L ALT (0-35) U/L Alkaline Phosphatase (38-126) U/L Creatine Kinase (30-135) U/L Troponin I 0.038 H* (0.000-0.033) ng/mL Serum Total Protein (6.3-8.2) g/dL Albumin (3.5-5.0) g/dL Free T4 (0.78-2.19) ng/dL TSH 3rd Generation (0.470-4.680) mIU/L Urine Color (YELLOW) Urine Appearance (CLEAR) Urine pH (5-6) Ur Specific Mather (1.005-1.025) POC Urine Protein Conf (Negative) Urine Ketones (NEGATIVE) Urine Nitrite (NEGATIVE) Urine Bilirubin (NEGATIVE) Urine Urobilinogen (0-1) mg/dL Urine Leukocytes (NEGATIVE) Urine RBC (0-5) Kenyon/ul Urine Microscopic RBC (0-5) /HPF Urine Microscopic WBC (0-5) /HPF Ur Epithelial Cells (None Seen) /HPF U Non-Squamous Epi Cells (None Seen) /HPF Urine Bacteria (None Seen) /HPF Urine Culture Reflexed (NO) Urine Glucose (NEGATIVE) mg/dL Accuchecks Date 07/07/24 Time 12:02 - Radiology Impressions Radiology Exams & Impressions: Radiology Procedures Category Date Time Status CT ANGIOGRAPHY NECK [CT] Stat Exams 07/07/24 14:17 Completed CTA HEAD W AND/OR WO CONTRAST [CT] Stat Exams 07/07/24 14:17 Completed Assessment/Plan (1) Near syncope Current Visit: Yes Status: Acute Assessment & Plan: -CTA head and neck was performed to rule out posterior stroke. 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 BP will be monitored closely, and antihypertensive medications will not be adjusted unless BP exceeds 220/120 mmHg - Once MRI and further neuro evaluation are complete, blood pressure management will be reassessed (2) Confusion Current Visit: Yes Status: Acute Assessment & Plan: -see near syncope Code(s): R41.0 - DISORIENTATION, UNSPECIFIED (3) History of acoustic neuroma Current Visit: Yes Status: Acute Assessment & Plan: - patient has a history of acoustic neuroma, there are no signs of cranial nerve dysfunction or vestibular symptoms suggestive of recurrence or complications related to that condition -CTA head/neck as stated above - no evidence on exam or imaging to suggest reactivation or new growth Code(s): Z86.018 - PERSONAL HISTORY OF OTHER BENIGN NEOPLASM (4) UTI (urinary tract infection) Current Visit: Yes Status: Acute Assessment & Plan: -UA showed small leukocyte esterase and trace bacteria, which could suggest a possible UTI - Ceftriaxone started in ED- will continue and follow culture Code(s): N39.0 - URINARY TRACT INFECTION, SITE NOT SPECIFIED (5) HTN (hypertension) Current Visit: Yes Status: Acute Assessment & Plan: -No prior history -Permissive hypertension will be allowed given the concern for possible posterior circulation ischemic event with no adjustment unless exceeding 220/120 -Monitor closely -Once MRI and further neuro evaluation are complete, blood pressure management will be reassessed Code(s): I10 - ESSENTIAL (PRIMARY) HYPERTENSION (6) Generalized weakness Current Visit: Yes Status: Acute Assessment & Plan: -Physical therapy will assess mobility and fall risk -CTA head and neck as stated above -MRI planned for 07/08/24 VTE: SCD Dispo: 1-2 days Code status: Full Code Code(s): R53.1 - WEAKNESS Telemedicine Encounter - Telemedicine Encounter Telemedicine Encounter: "The entirety of this encounter was performed via Telemedicine" This visit was performed using real-time audio and video connection between my location and thepatients locationwith the assistance of a surrogateat the patients location. Written or verbal consent was obtained from the patient/guardian to perform this visit using[facility] technology. Any patient questions regarding the telemedicine interaction were answered. <BARBRA CORREA - Last Filed: 07/07/24 20:40> History of Present Illness - Chief Complaint History of Present Illness: is a 89 year old female. - Physical Exam Vital Signs: Vital Signs - 24 hr Temp Pulse Resp BP BP Pulse Ox 07/07/24 19:02 97.1 F 96 H 18 172/83 93 L 07/07/24 17:30 97.1 F 94 H 16 172/83 94 L 07/07/24 16:45 93 H 22 193/100 94 L 07/07/24 16:30 90 21 155/80 95 07/07/24 16:27 98 07/07/24 16:15 84 28 H 177/92 91 L 07/07/24 16:00 86 21 176/99 94 L 07/07/24 15:45 88 20 170/91 92 L 07/07/24 15:30 88 22 175/101 94 L 07/07/24 15:24 96 H 20 170/107 07/07/24 15:18 96 H 21 193/103 94 L 07/07/24 14:30 85 20 196/83 95 07/07/24 14:23 84 21 94 L 07/07/24 14:01 67 21 149/74 96 07/07/24 13:45 71 21 160/81 96 07/07/24 13:37 68 21 167/67 94 L 07/07/24 13:30 66 20 98 07/07/24 13:20 65 22 94 L 04/06/25 13:17 67 22 94 L 07/07/24 12:45 71 22 158/77 99 07/07/24 12:30 77 21 169/92 95 07/07/24 12:15 85 22 181/100 98 07/07/24 12:01 96 H 16 207/88 98 07/07/24 12:00 85 21 207/88 91 L Results - Labs Lab/Micro Results: Lab Results-Last 24 Hours 07/07/24 07/07/24 07/07/24 Range/Units 12:02 12:40 12:41 WBC 5.5 (3.98-10.04) x10^3/uL RBC 5.25 H (3.93-5.22) x10^6/uL Hgb 11.2 (11.2-15.7) g/dL Hct 37.8 (34.1-44.9) % MCV 72.0 L (79.4-94.8) fL MCH 21.3 L (25.6-32.2) pg MCHC 29.6 L (32.2-35.5) g/dL RDW 19.9 H (11.7-14.4) % Plt Count 235 (182-369) x10^3/uL Gran % 51.5 (34.0-71.1) % Immature Gran % (Auto) 0.2 (0.001-0.429) % Nucleat RBC Rel Count 0.0 (0.00-0.2) % Eos # (Auto) 0.17 (0.04-0.36) x10^3/uL Immature Gran # (Auto) 0.01 (0.001-0.031) x10^3u/L Absolute Lymphs (auto) 1.80 (1.18-3.74) x10^3/uL Absolute Monos (auto) 0.67 (0.24-0.86) x10^3/uL Absolute Nucleated RBC 0.00 (0.00-0.012) x10^3u/L Lymphocytes % 32.6 (19.3-51.7) % Monocytes % 12.1 (4.7-12.5) % Eosinophils % 3.1 (0.7-5.8) % Basophils % 0.5 (0.1-1.2) % Absolute Granulocytes 2.84 (1.56-6.13) x10^3/uL Basophils # 0.03 (0.01-0.08) x10^3/uL Sodium (135-145) mmol/L Potassium (3.5-5.1) mmol/L Chloride (98-107) mmol/L Carbon Dioxide (22-30) mmol/L Anion Gap (5-15) MEQ/L BUN (7-17) mg/dL Creatinine (0.52-1.04) mg/dL Estimated GFR ML/MIN Glucose (74-106) mg/dL POC Glucometer 138 H (74 to 106) mg/dL Hemoglobin A1c (4.5-6.0) % Lactic Acid 2.7 H (0.4-2.0) Calcium (8.4-10.2) mg/dL Magnesium (1.6-2.3) mg/dL Total Bilirubin (0.2-1.3) mg/dL AST (14-36) U/L ALT (0-35) U/L Alkaline Phosphatase (38-126) U/L Creatine Kinase (30-135) U/L Troponin I (0.000-0.033) ng/mL Serum Total Protein (6.3-8.2) g/dL Albumin (3.5-5.0) g/dL Free T4 (0.78-2.19) ng/dL TSH 3rd Generation (0.470-4.680) mIU/L Urine Color (YELLOW) Urine Appearance (CLEAR) Urine pH (5-6) Ur Specific Mather (1.005-1.025) POC Urine Protein Conf (Negative) Urine Ketones (NEGATIVE) Urine Nitrite (NEGATIVE) Urine Bilirubin (NEGATIVE) Urine Urobilinogen (0-1) mg/dL Urine Leukocytes (NEGATIVE) Urine RBC (0-5) Kenyon/ul Urine Microscopic RBC (0-5) /HPF Urine Microscopic WBC (0-5) /HPF Ur Epithelial Cells (None Seen) /HPF U Non-Squamous Epi Cells (None Seen) /HPF Urine Bacteria (None Seen) /HPF Urine Culture Reflexed (NO) Urine Glucose (NEGATIVE) mg/dL 07/07/24 07/07/24 07/07/24 Range/Units 12:46 13:00 13:00 WBC (3.98-10.04) x10^3/uL RBC (3.93-5.22) x10^6/uL Hgb (11.2-15.7) g/dL Hct (34.1-44.9) % MCV (79.4-94.8) fL MCH (25.6-32.2) pg MCHC (32.2-35.5) g/dL RDW (11.7-14.4) % Plt Count (182-369) x10^3/uL Gran % (34.0-71.1) % Immature Gran % (Auto) (0.001-0.429) % Nucleat RBC Rel Count (0.00-0.2) % Eos # (Auto) (0.04-0.36) x10^3/uL Immature Gran # (Auto) (0.001-0.031) x10^3u/L Absolute Lymphs (auto) (1.18-3.74) x10^3/uL Absolute Monos (auto) (0.24-0.86) x10^3/uL Absolute Nucleated RBC (0.00-0.012) x10^3u/L Lymphocytes % (19.3-51.7) % Monocytes % (4.7-12.5) % Eosinophils % (0.7-5.8) % Basophils % (0.1-1.2) % Absolute Granulocytes (1.56-6.13) x10^3/uL Basophils # (0.01-0.08) x10^3/uL Sodium 140 (135-145) mmol/L Potassium 4.7 (3.5-5.1) mmol/L Chloride 102 (98-107) mmol/L Carbon Dioxide 30 (22-30) mmol/L Anion Gap 13.2 (5-15) MEQ/L BUN 17 (7-17) mg/dL Creatinine 0.75 (0.52-1.04) mg/dL Estimated GFR 77.0 ML/MIN Glucose 149 H (74-106) mg/dL POC Glucometer 171 H (74 to 106) mg/dL Hemoglobin A1c (4.5-6.0) % Lactic Acid (0.4-2.0) Calcium 8.8 (8.4-10.2) mg/dL Magnesium 1.9 (1.6-2.3) mg/dL Total Bilirubin 0.40 (0.2-1.3) mg/dL AST 31 (14-36) U/L ALT 19 (0-35) U/L Alkaline Phosphatase 54 (38-126) U/L Creatine Kinase 25 L (30-135) U/L Troponin I 0.015 (0.000-0.033) ng/mL Serum Total Protein 6.5 (6.3-8.2) g/dL Albumin 4.0 (3.5-5.0) g/dL Free T4 (0.78-2.19) ng/dL TSH 3rd Generation 1.606 (0.470-4.680) mIU/L Urine Color (YELLOW) Urine Appearance (CLEAR) Urine pH (5-6) Ur Specific Mather (1.005-1.025) POC Urine Protein Conf (Negative) Urine Ketones (NEGATIVE) Urine Nitrite (NEGATIVE) Urine Bilirubin (NEGATIVE) Urine Urobilinogen (0-1) mg/dL Urine Leukocytes (NEGATIVE) Urine RBC (0-5) [place]/ul Urine Microscopic RBC (0-5) /HPF Urine Microscopic WBC (0-5) /HPF Ur Epithelial Cells (None Seen) /HPF U Non-Squamous Epi Cells (None Seen) /HPF Urine Bacteria (None Seen) /HPF Urine Culture Reflexed (NO) Urine Glucose (NEGATIVE) mg/dL 07/07/24 07/07/24 07/07/24 Range/Units 13:00 13:00 13:04 WBC (3.98-10.04) x10^3/uL RBC (3.93-5.22) x10^6/uL Hgb (11.2-15.7) g/dL Hct (34.1-44.9) % MCV (79.4-94.8) fL MCH (25.6-32.2) pg MCHC (32.2-35.5) g/dL RDW (11.7-14.4) % Plt Count (182-369) x10^3/uL Gran % (34.0-71.1) % Immature Gran % (Auto) (0.001-0.429) % Nucleat RBC Rel Count (0.00-0.2) % Eos # (Auto) (0.04-0.36) x10^3/uL Immature Gran # (Auto) (0.001-0.031) x10^3u/L Absolute Lymphs (auto) (1.18-3.74) x10^3/uL Absolute Monos (auto) (0.24-0.86) x10^3/uL Absolute Nucleated RBC (0.00-0.012) x10^3u/L Lymphocytes % (19.3-51.7) % Monocytes % (4.7-12.5) % Eosinophils % (0.7-5.8) % Basophils % (0.1-1.2) % Absolute Granulocytes (1.56-6.13) x10^3/uL Basophils # (0.01-0.08) x10^3/uL Sodium (135-145) mmol/L Potassium (3.5-5.1) mmol/L Chloride (98-107) mmol/L Carbon Dioxide (22-30) mmol/L Anion Gap (5-15) MEQ/L BUN (7-17) mg/dL Creatinine (0.52-1.04) mg/dL Estimated GFR ML/MIN Glucose (74-106) mg/dL POC Glucometer (74 to 106) mg/dL Hemoglobin A1c 5.53 (4.5-6.0) % Lactic Acid (0.4-2.0) Calcium (8.4-10.2) mg/dL Magnesium (1.6-2.3) mg/dL Total Bilirubin (0.2-1.3) mg/dL AST (14-36) U/L ALT (0-35) U/L Alkaline Phosphatase (38-126) U/L Creatine Kinase (30-135) U/L Troponin I (0.000-0.033) ng/mL Serum Total Protein (6.3-8.2) g/dL Albumin (3.5-5.0) g/dL Free T4 1.34 (0.78-2.19) ng/dL TSH 3rd Generation (0.470-4.680) mIU/L Urine Color YELLOW (YELLOW) Urine Appearance CLEAR (CLEAR) Urine pH 6.0 (5-6) Ur Specific Mather 1.020 (1.005-1.025) POC Urine Protein Conf TRACE A (Negative) Urine Ketones NEGATIVE (NEGATIVE) Urine Nitrite NEGATIVE (NEGATIVE) Urine Bilirubin NEGATIVE (NEGATIVE) Urine Urobilinogen 0.2 (0-1) mg/dL Urine Leukocytes SMALL A (NEGATIVE) Urine RBC TRACE-INTACT A (0-5) [place]/ul Urine Microscopic RBC 0-2 (0-5) /HPF Urine Microscopic WBC 3-5 (0-5) /HPF Ur Epithelial Cells Few (None Seen) /HPF U Non-Squamous Epi Cells None Seen (None Seen) /HPF Urine Bacteria Few A (None Seen) /HPF Urine Culture Reflexed YES (NO) Urine Glucose NEGATIVE (NEGATIVE) mg/dL 07/07/24 07/07/24 Range/Units 13:06 16:20 WBC (3.98-10.04) x10^3/uL RBC (3.93-5.22) x10^6/uL Hgb (11.2-15.7) g/dL Hct (34.1-44.9) % MCV (79.4-94.8) fL MCH (25.6-32.2) pg MCHC (32.2-35.5) g/dL RDW (11.7-14.4) % Plt Count (182-369) x10^3/uL Gran % (34.0-71.1) % Immature Gran % (Auto) (0.001-0.429) % Nucleat RBC Rel Count (0.00-0.2) % Eos # (Auto) (0.04-0.36) x10^3/uL Immature Gran # (Auto) (0.001-0.031) x10^3u/L Absolute Lymphs (auto) (1.18-3.74) x10^3/uL Absolute Monos (auto) (0.24-0.86) x10^3/uL Absolute Nucleated RBC (0.00-0.012) x10^3u/L Lymphocytes % (19.3-51.7) % Monocytes % (4.7-12.5) % Eosinophils % (0.7-5.8) % Basophils % (0.1-1.2) % Absolute Granulocytes (1.56-6.13) x10^3/uL Basophils # (0.01-0.08) x10^3/uL Sodium (135-145) mmol/L Potassium (3.5-5.1) mmol/L Chloride (98-107) mmol/L Carbon Dioxide (22-30) mmol/L Anion Gap (5-15) MEQ/L BUN (7-17) mg/dL Creatinine (0.52-1.04) mg/dL Estimated GFR ML/MIN Glucose (74-106) mg/dL POC Glucometer (74 to 106) mg/dL Hemoglobin A1c (4.5-6.0) % Lactic Acid 1.5 (0.4-2.0) Calcium (8.4-10.2) mg/dL Magnesium (1.6-2.3) mg/dL Total Bilirubin (0.2-1.3) mg/dL AST (14-36) U/L ALT (0-35) U/L Alkaline Phosphatase (38-126) U/L Creatine Kinase (30-135) U/L Troponin I 0.038 H* (0.000-0.033) ng/mL Serum Total Protein (6.3-8.2) g/dL Albumin (3.5-5.0) g/dL Free T4 (0.78-2.19) ng/dL TSH 3rd Generation (0.470-4.680) mIU/L Urine Color (YELLOW) Urine Appearance (CLEAR) Urine pH (5-6) Ur Specific Mather (1.005-1.025) POC Urine Protein Conf (Negative) Urine Ketones (NEGATIVE) Urine Nitrite (NEGATIVE) Urine Bilirubin (NEGATIVE) Urine Urobilinogen (0-1) mg/dL Urine Leukocytes (NEGATIVE) Urine RBC (0-5) [place]/ul Urine Microscopic RBC (0-5) /HPF Urine Microscopic WBC (0-5) /HPF Ur Epithelial Cells (None Seen) /HPF U Non-Squamous Epi Cells (None Seen) /HPF Urine Bacteria (None Seen) /HPF Urine Culture Reflexed (NO) Urine Glucose (NEGATIVE) mg/dL Accuchecks Date 07/07/24 Time 12:02 - Radiology Impressions Radiology Exams & Impressions: Radiology Procedures Category Date Time Status CT ANGIOGRAPHY NECK [CT] Stat Exams 07/07/24 14:17 Completed CTA HEAD W AND/OR WO CONTRAST [CT] Stat Exams 07/07/24 14:17 Completed MRI BRAIN W/O CONTRAST [MRI] Urgent Exams 07/08/24 07:00 Ordered Telemedicine Encounter - Telemedicine Encounter Telemedicine Encounter: "The entirety of this encounter was performed via Telemedicine" This visit was performed using real-time audio and video connection between my location and thepatients locationwith the assistance of a surrogateat the patients location. Written or verbal consent was obtained from the patient/guardian to perform this visit usingsyn[employer]al Co-optelemedicine technology. Any patient questions regarding the telemedicine interaction were answered. JACQUELINE Encounter - JACQUELINE Encounter Attestation JACQUELINE Encounter Attestation: "IhavepersonallyseenandJulien,NABEEL Charles andhavediscussed pertinent aspects of their care with Jeremy Goode agree with the history, physical exam (any modifications based on my personal exam will be noted below), assessment, and plan as outlined in original note. Please see immediately below for my summary of findings and additional assessment and plan along with any meaningful corrections/explanations to the Subjective/Objective portions of the JACQUELINE note will be noted." My portion of the encounter took place via telemedicine. -Patient presents with left sided weakness and leaning to left witnessed by daughter. Symptoms concerning for stroke per neurology. Recommend MRI brain. Patient already takes 2 baby aspirins daily. Neuro recommends adding plavix 75 mg tonight with further recommendations pending MRI.
[2024-07-07] MEDS ORDERED: TYLENOL 325 MG PO PRN (18:12)
[2024-07-07] MEDS ORDERED: Zofran 4 MG/2 ML VIAL IV PRN (18:12)
[2024-07-07] MEDS: PLAVIX Tablet PO ONE (20:47)
[2024-07-08 01:08] LABS: Absolute Neutrophil Ct (ANC) 4.11 x10^3/uL (1.56-6.13); BASOPHIL % 0.5 % (0.1-1.2); Basophil (Absolute #) 0.03 x10^3/uL (0.01-0.08); Eosinophil % 0.5 % (0.7-5.8); Eosinophil (Absolute #) 0.03 x10^3/uL (0.04-0.36); Hematocrit 34.9 % (34.1-44.9); Hemoglobin 10.5 g/dL (11.2-15.7); IMMATURE GRAN # 0.03 x10^3u/L (0.001-0.031); IMMATURE GRAN % 0.5 % (0.001-0.429); Lymphocyte (Absolute #) 1.45 x10^3/uL (1.18-3.74); Lymphocytes % 22.9 % (19.3-51.7); Mean Cell Volume 71.4 fL (79.4-94.8); Mean Corpuscular Hemoglobin 21.5 pg (25.6-32.2); Mean Corpuscular Hgb Concent. 30.1 g/dL (32.2-35.5); Mean Platelet Volume 11.5 fL (9.4-12.3); Monocyte (Absolute #) 0.69 x10^3/uL (0.24-0.86); Monocytes % 10.9 % (4.7-12.5); Neutrophil % 64.7 % (34.0-71.1); Platelet Count 248 x10^3/uL (182-369); Red Blood Count 4.89 x10^6/uL (3.93-5.22); Red Cell Distribution Width 19.5 % (11.7-14.4); White Blood Count 6.3 x10^3/uL (3.98-10.04)
[2024-07-08 01:27] LABS: ALBUMIN 3.9 g/dL (3.5-5.0); ANION GAP 11.8 MEQ/L (5-15); BILIRUBIN,TOTAL 0.4 mg/dL (0.2-1.3); Calcium 8.8 mg/dL (8.4-10.2); Creatinine 1 0.64 mg/dL (0.52-1.04); EST GLOMERULAR FILTRATION RATE 85.5 ML/MIN; Potassium 4.1 mmol/L (3.5-5.1); Total Protein 6.4 g/dL (6.3-8.2)
[2024-07-08] MEDS ORDERED: ROCEPHIN 1 GM / 100 ML NaCl 1 GM/100 ML IVPB IV SCH (10:00)
[2024-07-08] MEDS: ECOTRIN 81 MG PO SCH (11:20)
[2024-07-08] MEDS: Protonix 40MG Tablet PO SCH (11:20)
--- NOTE | 2024-07-08 12:19 | PCM.NOTE ---
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 While sitting on a bar stool at breakfast, she suddenly felt like she was going to fall. The episode lasted approximately three minutes, during which she appeared unresponsive, had a glazed look, was unable to follow commands, and spoke repetitively. This was followed by confusion. She was noted to be leaning to the left with left-sided weakness, making ambulation difficult. The patient denies chest pain, shortness of breath, nausea, vomiting, or recent illness. 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 She denies prior episodes of vertigo, imbalance, or neurological symptoms. 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 Vital signs showed significantly elevated blood pressure at 207/88 mmHg. An EKG showed evidence of old NE without acute changes. Labs, including CBC, CMP, and TSH, were unremarkable. A urine analysis (UA) showed small leukocyte esterase and trace bacteria, raising suspicion for a UTI. A CTA of the head and neck ruled out a posterior stroke, showing chronic findings such as mild bilateral carotid stenosis, a hypoplastic right vertebral artery, and old infarcts in the right parietal region and basal ganglia.Upon attempting to get up, the patient was visibly unsteady, drifted to the left side, and endorsed new generalized weakness and urinary urgency with difficulty voiding. Ceftriaxone and a fluid bolus were administered in the ED. She was admitted for the near-syncopal episode and weakness. The plan includes a neurology consultation, telemetry monitoring, and empiric IV antibiotics for a possible UTI. Today, the patient has no complaints or weakness and is awaiting an MRI of the brain, echocardiogram, and PT/OT evaluation. She is currently being managed with permissive hypertension. Troponins were elevated, and daily 81 mg ASA was started. The patient denies chest pain, shortness of breath, abdominal pain, nausea, vomiting, diarrhea, or weakness. 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 - Review of Systems Constitutional: No Fever, No Chills Eyes: No Symptoms Ears, Nose, & Throat: No Symptoms Respiratory: No Cough, No Short Of Breath Cardiac: No Chest Pain, No Edema, No Syncope Abdominal/Gastrointestinal: No Abdominal Pain, No Nausea, No Vomiting, No Diar bryant Genitourinary Symptoms: No Dysuria Musculoskeletal: No Back Pain, No Neck Pain Skin: No Rash Neurological: No Dizziness, No Focal Weakness, No Sensory Changes Psychological: No Symptoms Endocrine: No Symptoms Hematologic/Lymphatic: No Symptoms Immunological/Allergic: No Symptoms Objective Exam General Appearance: no apparent distress, alert Neurologic Exam: alert, oriented x 3, cooperative, normal mood/affect, nml cerebellar function, sensation nml, No motor deficits Skin Exam: normal color, warm, dry Eye Exam: PERRL, EOMI, eyes nml inspection Ears, Nose, Throat Exam: normal ENT inspection, pharynx normal, moist mucous membranes Neck Exam: normal inspection, non-tender, supple, full range of motion Respiratory Exam: normal breath sounds, lungs clear, No respiratory distress Cardiovascular Exam: regular rate/rhythm, normal heart sounds Gastrointestinal/Abdomen Exam: soft, No tenderness, No mass Extremity Exam: normal inspection, normal range of motion Back Exam: normal inspection, normal range of motion, No CVA tenderness, No vertebral tenderness Pelvic Exam: deferred Rectal Exam: deferred Objective Data Vital Signs: Vital Signs - 24 hr Temp Pulse Resp BP BP BP Pulse Ox 07/08/24 07:48 97.2 F 88 16 192/89 96 07/08/24 04:42 95 H 221/105 07/08/24 04:41 97.0 F 94 H 18 209/97 95 07/08/24 03:42 103 H 208/92 07/08/24 01:07 96.9 F 74 18 187/84 95 07/07/24 19:02 97.1 F 96 H 18 172/83 93 L 07/07/24 17:30 97.1 F 94 H 16 172/83 94 L 07/07/24 16:45 93 H 22 193/100 94 L 07/07/24 16:30 90 21 155/80 95 07/07/24 16:27 98 07/07/24 16:15 84 28 H 177/92 91 L 07/07/24 16:00 86 21 176/99 94 L 07/07/24 15:45 88 20 170/91 92 L 07/07/24 15:30 88 22 175/101 94 L 07/07/24 15:24 96 H 20 170/107 07/07/24 15:18 96 H 21 193/103 94 L 07/07/24 14:30 85 20 196/83 95 07/07/24 14:23 84 21 94 L 07/07/24 14:01 67 21 149/74 96 07/07/24 13:45 71 21 160/81 96 07/07/24 13:37 68 21 167/67 94 L 07/07/24 13:30 66 20 98 07/07/24 13:20 65 22 94 L 07/07/24 13:17 67 22 94 L 07/07/24 12:45 71 22 158/77 99 07/07/24 12:30 77 21 169/92 95 07/07/24 12:15 85 22 181/100 98 Pain Assessment - Last Documented Pain Intensity 0 Intake and Output: Intake & Output 07/06/24 07/07/24 07/08/24 07/09/24 11:59 11:59 11:59 11:59 Intake Total 540 Balance 540 Weight 48.8 kg Lab Results: Lab Results-Last 24 Hours 07/07/24 07/07/24 07/07/24 Range/Units 12:40 12:41 12:46 WBC 5.5 (3.98-10.04) x10^3/uL RBC 5.25 H (3.93-5.22) x10^6/uL Hgb 11.2 (11.2-15.7) g/dL Hct 37.8 (34.1-44.9) % MCV 72.0 L (79.4-94.8) fL MCH 21.3 L (25.6-32.2) pg MCHC 29.6 L (32.2-35.5) g/dL RDW 19.9 H (11.7-14.4) % Plt Count 235 (182-369) x10^3/uL MPV (9.4-12.3) fL Gran % 51.5 (34.0-71.1) % Immature Gran % (Auto) 0.2 (0.001-0.429) % Nucleat RBC Rel Count 0.0 (0.00-0.2) % Eos # (Auto) 0.17 (0.04-0.36) x10^3/uL Immature Gran # (Auto) 0.01 (0.001-0.031) x10^3u/L Absolute Lymphs (auto) 1.80 (1.18-3.74) x10^3/uL Absolute Monos (auto) 0.67 (0.24-0.86) x10^3/uL Absolute Nucleated RBC 0.00 (0.00-0.012) x10^3u/L Lymphocytes % 32.6 (19.3-51.7) % Monocytes % 12.1 (4.7-12.5) % Eosinophils % 3.1 (0.7-5.8) % Basophils % 0.5 (0.1-1.2) % Absolute Granulocytes 2.84 (1.56-6.13) x10^3/uL Basophils # 0.03 (0.01-0.08) x10^3/uL Sodium (135-145) mmol/L Potassium (3.5-5.1) mmol/L Chloride (98-107) mmol/L Carbon Dioxide (22-30) mmol/L Anion Gap (5-15) MEQ/L BUN (7-17) mg/dL Creatinine (0.52-1.04) mg/dL Estimated GFR ML/MIN Glucose (74-106) mg/dL POC Glucometer 171 H (74 to 106) mg/dL Hemoglobin A1c (4.5-6.0) % Lactic Acid 2.7 H (0.4-2.0) Calcium (8.4-10.2) mg/dL Magnesium (1.6-2.3) mg/dL Total Bilirubin (0.2-1.3) mg/dL AST (14-36) U/L ALT (0-35) U/L Alkaline Phosphatase (38-126) U/L Creatine Kinase (30-135) U/L Troponin I (0.000-0.033) ng/mL Serum Total Protein (6.3-8.2) g/dL Albumin (3.5-5.0) g/dL Triglycerides (30-150) mg/dL Cholesterol (50-200) mg/dL LDL Cholesterol (30-100) mg/dL HDL Cholesterol (40-60) mg/dL Heart Disease Risk Ratio Free T4 (0.78-2.19) ng/dL TSH 3rd Generation (0.470-4.680) mIU/L Urine Color (YELLOW) Urine Appearance (CLEAR) Urine pH (5-6) Ur Specific Pickford (1.005-1.025) POC Urine Protein Conf (Negative) Urine Ketones (NEGATIVE) Urine Nitrite (NEGATIVE) Urine Bilirubin (NEGATIVE) Urine Urobilinogen (0-1) mg/dL Urine Leukocytes (NEGATIVE) Urine RBC (0-5) Kenyon/ul Urine Microscopic RBC (0-5) /HPF Urine Microscopic WBC (0-5) /HPF Ur Epithelial Cells (None Seen) /HPF U Non-Squamous Epi Cells (None Seen) /HPF Urine Bacteria (None Seen) /HPF Urine Culture Reflexed (NO) Urine Glucose (NEGATIVE) mg/dL 07/07/24 07/07/24 07/07/24 Range/Units 13:00 13:00 13:00 WBC (3.98-10.04) x10^3/uL RBC (3.93-5.22) x10^6/uL Hgb (11.2-15.7) g/dL Hct (34.1-44.9) % MCV (79.4-94.8) fL MCH (25.6-32.2) pg MCHC (32.2-35.5) g/dL RDW (11.7-14.4) % Plt Count (182-369) x10^3/uL MPV (9.4-12.3) fL Gran % (34.0-71.1) % Immature Gran % (Auto) (0.001-0.429) % Nucleat RBC Rel Count (0.00-0.2) % Eos # (Auto) (0.04-0.36) x10^3/uL Immature Gran # (Auto) (0.001-0.031) x10^3u/L Absolute Lymphs (auto) (1.18-3.74) x10^3/uL Absolute Monos (auto) (0.24-0.86) x10^3/uL Absolute Nucleated RBC (0.00-0.012) x10^3u/L Lymphocytes % (19.3-51.7) % Monocytes % (4.7-12.5) % Eosinophils % (0.7-5.8) % Basophils % (0.1-1.2) % Absolute Granulocytes (1.56-6.13) x10^3/uL Basophils # (0.01-0.08) x10^3/uL Sodium 140 (135-145) mmol/L Potassium 4.7 (3.5-5.1) mmol/L Chloride 102 (98-107) mmol/L Carbon Dioxide 30 (22-30) mmol/L Anion Gap 13.2 (5-15) MEQ/L BUN 17 (7-17) mg/dL Creatinine 0.75 (0.52-1.04) mg/dL Estimated GFR 77.0 ML/MIN Glucose 149 H (74-106) mg/dL POC Glucometer (74 to 106) mg/dL Hemoglobin A1c (4.5-6.0) % Lactic Acid (0.4-2.0) Calcium 8.8 (8.4-10.2) mg/dL Magnesium 1.9 (1.6-2.3) mg/dL Total Bilirubin 0.40 (0.2-1.3) mg/dL AST 31 (14-36) U/L ALT 19 (0-35) U/L Alkaline Phosphatase 54 (38-126) U/L Creatine Kinase 25 L (30-135) U/L Troponin I 0.015 (0.000-0.033) ng/mL Serum Total Protein 6.5 (6.3-8.2) g/dL Albumin 4.0 (3.5-5.0) g/dL Triglycerides (30-150) mg/dL Cholesterol (50-200) mg/dL LDL Cholesterol (30-100) mg/dL HDL Cholesterol (40-60) mg/dL Heart Disease Risk Ratio Free T4 1.34 (0.78-2.19) ng/dL TSH 3rd Generation 1.606 (0.470-4.680) mIU/L Urine Color (YELLOW) Urine Appearance (CLEAR) Urine pH (5-6) Ur Specific [place]ford (1.005-1.025) POC Urine Protein Conf (Negative) Urine Ketones (NEGATIVE) Urine Nitrite (NEGATIVE) Urine Bilirubin (NEGATIVE) Urine Urobilinogen (0-1) mg/dL Urine Leukocytes (NEGATIVE) Urine RBC (0-5) Kenyon/ul Urine Microscopic RBC (0-5) /HPF Urine Microscopic WBC (0-5) /HPF Ur Epithelial Cells (None Seen) /HPF U Non-Squamous Epi Cells (None Seen) /HPF Urine Bacteria (None Seen) /HPF Urine Culture Reflexed (NO) Urine Glucose (NEGATIVE) mg/dL 07/07/24 07/07/24 07/07/24 Range/Units 13:00 13:04 13:06 WBC (3.98-10.04) x10^3/uL RBC (3.93-5.22) x10^6/uL Hgb (11.2-15.7) g/dL Hct (34.1-44.9) % MCV (79.4-94.8) fL MCH (25.6-32.2) pg MCHC (32.2-35.5) g/dL RDW (11.7-14.4) % Plt Count (182-369) x10^3/uL MPV (9.4-12.3) fL Gran % (34.0-71.1) % Immature Gran % (Auto) (0.001-0.429) % Nucleat RBC Rel Count (0.00-0.2) % Eos # (Auto) (0.04-0.36) x10^3/uL Immature Gran # (Auto) (0.001-0.031) x10^3u/L Absolute Lymphs (auto) (1.18-3.74) x10^3/uL Absolute Monos (auto) (0.24-0.86) x10^3/uL Absolute Nucleated RBC (0.00-0.012) x10^3u/L Lymphocytes % (19.3-51.7) % Monocytes % (4.7-12.5) % Eosinophils % (0.7-5.8) % Basophils % (0.1-1.2) % Absolute Granulocytes (1.56-6.13) x10^3/uL Basophils # (0.01-0.08) x10^3/uL Sodium (135-145) mmol/L Potassium (3.5-5.1) mmol/L Chloride (98-107) mmol/L Carbon Dioxide (22-30) mmol/L Anion Gap (5-15) MEQ/L BUN (7-17) mg/dL Creatinine (0.52-1.04) mg/dL Estimated GFR ML/MIN Glucose (74-106) mg/dL POC Glucometer (74 to 106) mg/dL Hemoglobin A1c 5.53 (4.5-6.0) % Lactic Acid 1.5 (0.4-2.0) Calcium (8.4-10.2) mg/dL Magnesium (1.6-2.3) mg/dL Total Bilirubin (0.2-1.3) mg/dL AST (14-36) U/L ALT (0-35) U/L Alkaline Phosphatase (38-126) U/L Creatine Kinase (30-135) U/L Troponin I (0.000-0.033) ng/mL Serum Total Protein (6.3-8.2) g/dL Albumin (3.5-5.0) g/dL Triglycerides (30-150) mg/dL Cholesterol (50-200) mg/dL LDL Cholesterol (30-100) mg/dL HDL Cholesterol (40-60) mg/dL Heart Disease Risk Ratio Free T4 (0.78-2.19) ng/dL TSH 3rd Generation (0.470-4.680) mIU/L Urine Color YELLOW (YELLOW) Urine Appearance CLEAR (CLEAR) Urine pH 6.0 (5-6) Ur Specific [place] 1.020 (1.005-1.025) POC Urine Protein Conf TRACE A (Negative) Urine Ketones NEGATIVE (NEGATIVE) Urine Nitrite NEGATIVE (NEGATIVE) Urine Bilirubin NEGATIVE (NEGATIVE) Urine Urobilinogen 0.2 (0-1) mg/dL Urine Leukocytes SMALL A (NEGATIVE) Urine RBC TRACE-INTACT A (0-5) Kenyon/ul Urine Microscopic RBC 0-2 (0-5) /HPF Urine Microscopic WBC 3-5 (0-5) /HPF Ur Epithelial Cells Few (None Seen) /HPF U Non-Squamous Epi Cells None Seen (None Seen) /HPF Urine Bacteria Few A (None Seen) /HPF Urine Culture Reflexed YES (NO) Urine Glucose NEGATIVE (NEGATIVE) mg/dL 07/07/24 07/07/24 07/08/24 Range/Units 16:20 21:03 01:00 WBC 6.3 (3.98-10.04) x10^3/uL RBC 4.89 (3.93-5.22) x10^6/uL Hgb 10.5 L (11.2-15.7) g/dL Hct 34.9 (34.1-44.9) % MCV 71.4 L (79.4-94.8) fL MCH 21.5 L (25.6-32.2) pg MCHC 30.1 L (32.2-35.5) g/dL RDW 19.5 H (11.7-14.4) % Plt Count 248 (182-369) x10^3/uL MPV 11.5 (9.4-12.3) fL Gran % 64.7 (34.0-71.1) % Immature Gran % (Auto) 0.5 H (0.001-0.429) % Nucleat RBC Rel Count 0.0 (0.00-0.2) % Eos # (Auto) 0.03 L (0.04-0.36) x10^3/uL Immature Gran # (Auto) 0.03 (0.001-0.031) x10^3u/L Absolute Lymphs (auto) 1.45 (1.18-3.74) x10^3/uL Absolute Monos (auto) 0.69 (0.24-0.86) x10^3/uL Absolute Nucleated RBC 0.00 (0.00-0.012) x10^3u/L Lymphocytes % 22.9 (19.3-51.7) % Monocytes % 10.9 (4.7-12.5) % Eosinophils % 0.5 L (0.7-5.8) % Basophils % 0.5 (0.1-1.2) % Absolute Granulocytes 4.11 (1.56-6.13) x10^3/uL Basophils # 0.03 (0.01-0.08) x10^3/uL Sodium (135-145) mmol/L Potassium (3.5-5.1) mmol/L Chloride (98-107) mmol/L Carbon Dioxide (22-30) mmol/L Anion Gap (5-15) MEQ/L BUN (7-17) mg/dL Creatinine (0.52-1.04) mg/dL Estimated GFR ML/MIN Glucose (74-106) mg/dL POC Glucometer (74 to 106) mg/dL Hemoglobin A1c (4.5-6.0) % Lactic Acid (0.4-2.0) Calcium (8.4-10.2) mg/dL Magnesium (1.6-2.3) mg/dL Total Bilirubin (0.2-1.3) mg/dL AST (14-36) U/L ALT (0-35) U/L Alkaline Phosphatase (38-126) U/L Creatine Kinase (30-135) U/L Troponin I 0.038 H* 0.144 H* (0.000-0.033) ng/mL Serum Total Protein (6.3-8.2) g/dL Albumin (3.5-5.0) g/dL Triglycerides (30-150) mg/dL Cholesterol (50-200) mg/dL LDL Cholesterol (30-100) mg/dL HDL Cholesterol (40-60) mg/dL Heart Disease Risk Ratio Free T4 (0.78-2.19) ng/dL TSH 3rd Generation (0.470-4.680) mIU/L Urine Color (YELLOW) Urine Appearance (CLEAR) Urine pH (5-6) Ur Specific [place] (1.005-1.025) POC Urine Protein Conf (Negative) Urine Ketones (NEGATIVE) Urine Nitrite (NEGATIVE) Urine Bilirubin (NEGATIVE) Urine Urobilinogen (0-1) mg/dL Urine Leukocytes (NEGATIVE) Urine RBC (0-5) Kenyon/ul Urine Microscopic RBC (0-5) /HPF Urine Microscopic WBC (0-5) /HPF Ur Epithelial Cells (None Seen) /HPF U Non-Squamous Epi Cells (None Seen) /HPF Urine Bacteria (None Seen) /HPF Urine Culture Reflexed (NO) Urine Glucose (NEGATIVE) mg/dL 07/08/24 07/08/24 07/08/24 Range/Units 01:00 01:00 04:40 WBC (3.98-10.04) x10^3/uL RBC (3.93-5.22) x10^6/uL Hgb (11.2-15.7) g/dL Hct (34.1-44.9) % MCV (79.4-94.8) fL MCH (25.6-32.2) pg MCHC (32.2-35.5) g/dL RDW (11.7-14.4) % Plt Count (182-369) x10^3/uL MPV (9.4-12.3) fL Gran % (34.0-71.1) % Immature Gran % (Auto) (0.001-0.429) % Nucleat RBC Rel Count (0.00-0.2) % Eos # (Auto) (0.04-0.36) x10^3/uL Immature Gran # (Auto) (0.001-0.031) x10^3u/L Absolute Lymphs (auto) (1.18-3.74) x10^3/uL Absolute Monos (auto) (0.24-0.86) x10^3/uL Absolute Nucleated RBC (0.00-0.012) x10^3u/L Lymphocytes % (19.3-51.7) % Monocytes % (4.7-12.5) % Eosinophils % (0.7-5.8) % Basophils % (0.1-1.2) % Absolute Granulocytes (1.56-6.13) x10^3/uL Basophils # (0.01-0.08) x10^3/uL Sodium 139 (135-145) mmol/L Potassium 4.1 (3.5-5.1) mmol/L Chloride 103 (98-107) mmol/L Carbon Dioxide 28 (22-30) mmol/L Anion Gap 11.8 (5-15) MEQ/L BUN 11 (7-17) mg/dL Creatinine 0.64 (0.52-1.04) mg/dL Estimated GFR 85.5 ML/MIN Glucose 93 (74-106) mg/dL POC Glucometer (74 to 106) mg/dL Hemoglobin A1c (4.5-6.0) % Lactic Acid (0.4-2.0) Calcium 8.8 (8.4-10.2) mg/dL Magnesium (1.6-2.3) mg/dL Total Bilirubin 0.40 (0.2-1.3) mg/dL AST 35 (14-36) U/L ALT 17 (0-35) U/L Alkaline Phosphatase 60 (38-126) U/L Creatine Kinase (30-135) U/L Troponin I 0.165 H* 0.146 H* (0.000-0.033) ng/mL Serum Total Protein 6.4 (6.3-8.2) g/dL Albumin 3.9 (3.5-5.0) g/dL Triglycerides (30-150) mg/dL Cholesterol (50-200) mg/dL LDL Cholesterol (30-100) mg/dL HDL Cholesterol (40-60) mg/dL Heart Disease Risk Ratio Free T4 (0.78-2.19) ng/dL TSH 3rd Generation (0.470-4.680) mIU/L Urine Color (YELLOW) Urine Appearance (CLEAR) Urine pH (5-6) Ur Specific [place] (1.005-1.025) POC Urine Protein Conf (Negative) Urine Ketones (NEGATIVE) Urine Nitrite (NEGATIVE) Urine Bilirubin (NEGATIVE) Urine Urobilinogen (0-1) mg/dL Urine Leukocytes (NEGATIVE) Urine RBC (0-5) Kenyon/ul Urine Microscopic RBC (0-5) /HPF Urine Microscopic WBC (0-5) /HPF Ur Epithelial Cells (None Seen) /HPF U Non-Squamous Epi Cells (None Seen) /HPF Urine Bacteria (None Seen) /HPF Urine Culture Reflexed (NO) Urine Glucose (NEGATIVE) mg/dL 07/08/24 Range/Units 04:50 WBC (3.98-10.04) x10^3/uL RBC (3.93-5.22) x10^6/uL Hgb (11.2-15.7) g/dL Hct (34.1-44.9) % MCV (79.4-94.8) fL MCH (25.6-32.2) pg MCHC (32.2-35.5) g/dL RDW (11.7-14.4) % Plt Count (182-369) x10^3/uL MPV (9.4-12.3) fL Gran % (34.0-71.1) % Immature Gran % (Auto) (0.001-0.429) % Nucleat RBC Rel Count (0.00-0.2) % Eos # (Auto) (0.04-0.36) x10^3/uL Immature Gran # (Auto) (0.001-0.031) x10^3u/L Absolute Lymphs (auto) (1.18-3.74) x10^3/uL Absolute Monos (auto) (0.24-0.86) x10^3/uL Absolute Nucleated RBC (0.00-0.012) x10^3u/L Lymphocytes % (19.3-51.7) % Monocytes % (4.7-12.5) % Eosinophils % (0.7-5.8) % Basophils % (0.1-1.2) % Absolute Granulocytes (1.56-6.13) x10^3/uL Basophils # (0.01-0.08) x10^3/uL Sodium (135-145) mmol/L Potassium (3.5-5.1) mmol/L Chloride (98-107) mmol/L Carbon Dioxide (22-30) mmol/L Anion Gap (5-15) MEQ/L BUN (7-17) mg/dL Creatinine (0.52-1.04) mg/dL Estimated GFR ML/MIN Glucose (74-106) mg/dL POC Glucometer (74 to 106) mg/dL Hemoglobin A1c (4.5-6.0) % Lactic Acid (0.4-2.0) Calcium (8.4-10.2) mg/dL Magnesium (1.6-2.3) mg/dL Total Bilirubin (0.2-1.3) mg/dL AST (14-36) U/L ALT (0-35) U/L Alkaline Phosphatase (38-126) U/L Creatine Kinase (30-135) U/L Troponin I (0.000-0.033) ng/mL Serum Total Protein (6.3-8.2) g/dL Albumin (3.5-5.0) g/dL Triglycerides 132 (30-150) mg/dL Cholesterol 207 H (50-200) mg/dL LDL Cholesterol 121 H (30-100) mg/dL HDL Cholesterol 50 (40-60) mg/dL Heart Disease Risk Ratio 4.0 Free T4 (0.78-2.19) ng/dL TSH 3rd Generation (0.470-4.680) mIU/L Urine Color (YELLOW) Urine Appearance (CLEAR) Urine pH (5-6) Ur Specific [place] (1.005-1.025) POC Urine Protein Conf (Negative) Urine Ketones (NEGATIVE) Urine Nitrite (NEGATIVE) Urine Bilirubin (NEGATIVE) Urine Urobilinogen (0-1) mg/dL Urine Leukocytes (NEGATIVE) Urine RBC (0-5) Kenyon/ul Urine Microscopic RBC (0-5) /HPF Urine Microscopic WBC (0-5) /HPF Ur Epithelial Cells (None Seen) /HPF U Non-Squamous Epi Cells (None Seen) /HPF Urine Bacteria (None Seen) /HPF Urine Culture Reflexed (NO) Urine Glucose (NEGATIVE) mg/dL Radiology Exams: Radiology Procedures Category Date Time Status CT ANGIOGRAPHY NECK [CT] Stat Exams 07/07/24 14:17 Completed CTA HEAD W AND/OR WO CONTRAST [CT] Stat Exams 07/07/24 14:17 Completed ECHO W/2D AND DOPPLER [US] Routine Exams 07/08/24 08:11 Taken MRI BRAIN W/O CONTRAST [MRI] Urgent Exams 07/08/24 07:00 Taken Assessment/Plan (1) Near syncope Current Visit: Yes Status: Acute Assessment & Plan: - MRI brain pending - Echo - CBC, CMP reviewed - Radiology results reviewed - 2:2 TIA? - Lipid panel reviewed - Neurology consult - Orthostats on admission (2) Elevated troponin level Current Visit: Yes Status: Acute Assessment & Plan: - Trops 0.015, 0.038, 0.144, 0.165, 0.146 - Pt denies CP - EKG - tele - Echo - ASA 81 mg daily started Code(s): R79.89 - OTHER SPECIFIED ABNORMAL FINDINGS OF BLOOD CHEMISTRY (3) UTI (urinary tract infection) Current Visit: Yes Status: Acute Assessment & Plan: - Ceftriaxone stopped- UC negative so far. Code(s): N39.0 - URINARY TRACT INFECTION, SITE NOT SPECIFIED (4) Difficulty initiating walking Current Visit: Yes Status: Acute Assessment & Plan: - PT/OT evals - MRI brain pending - CTA head 1. No evidence of significant vascular abnormalities, acute infarct, or hemorrhage. 2. Diffuse calcified atherosclerotic changes of the bilateral internal carotid arteries are causing mild stenosis (20-30% stenosis on right side and 30-40% on left side) of the cavernous portion of the internal carotid arteries. 3. The proximal part of the left common carotid artery harbors a retroesophageal and retropharyngeal course while indenting the right oropharyngeal wall. 4. Bilateral calcified atherosclerotic changes seen at the carotid bulbs cause insignificant narrowing, about 20-30% stenosis bilaterally evident to more on the right side. 5. Hypoplastic right vertebral artery 6. Right parietal wedge-shaped cortical and subcortical hypodensity indicating old infarction. 7. 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 8. Mild involution age-related brain changes with mild deep white matter microvessle ischemia. - CT angiography: reviewed 1. No evidence of significant vascular abnormalities, acute infarct, or hemorrhage. 2. Diffuse calcified atherosclerotic changes of the bilateral internal carotid arteries are causing mild stenosis (20-30% stenosis on the right side and 30-40% on left side) of the cavernous portion of the internal carotid arteries. 3. The proximal part of the left common carotid artery harbors a retroesophageal and retropharyngeal course while indenting the right oropharyngeal wall. 4. Hypoplastic right vertebral artery 5. Bilateral calcified atherosclerotic changes seen at the carotid bulbs cause insignificant narrowing, about 20-30% stenosis bilaterally evident to more on the right side. 6. Right parietal wedge-shaped cortical and subcortical hypodensity indicating old infarction. 7. 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 8. Mild involution age-related brain changes with mild deep white matter microvessle ischemia. Code(s): R26.2 - DIFFICULTY IN WALKING, NOT ELSEWHERE CLASSIFIED (5) Generalized weakness Current Visit: Yes Status: Acute Assessment & Plan: - CTA head and CT angiography reviwed - PT/OT eval - MRI brain pending Code(s): R53.1 - WEAKNESS (6) HTN (hypertension) Current Visit: Yes Status: Acute Assessment & Plan: - Allow permissive HTN for now per protocol Code(s): I10 - ESSENTIAL (PRIMARY) HYPERTENSION (7) Underweight (BMI < 18.5) Current Visit: Yes Status: Acute Assessment & Plan: - Ensure high protein with meals - Nutrition consult Code(s): R63.6 - UNDERWEIGHT; Z68.1 - BODY MASS INDEX [BMI] 19.9 OR LESS, ADULT (8) Hyperlipidemia Current Visit: Yes Status: Acute Assessment & Plan: - LDL 121 - Cholesterol 207 - Started high dose statin d/t stroke risk Code(s): E78.5 - HYPERLIPIDEMIA, UNSPECIFIED (9) Confusion Current Visit: Yes Status: Resolved Assessment & Plan: - resolved Code(s): R41.0 - DISORIENTATION, UNSPECIFIED (10) History of acoustic neuroma Current Visit: Yes Status: Chronic Assessment & Plan: - patient has a history of acoustic neuroma, there are no signs of cranial nerve dysfunction or vestibular symptoms suggestive of recurrence or complications related to that condition -CTA head/neck as stated above - no evidence on exam or imaging to suggest reactivation or new growth VTE: SCD's PPI: Protonix Next of KIN: Daughter Code status: Full D/C plan: Tomorrow Code(s): Z86.018 - PERSONAL HISTORY OF OTHER BENIGN NEOPLASM
--- NOTE | 2024-07-08 12:33 | XRAY ---
Indication: Left-sided weakness. Near-syncope. Sagittal, coronal, and axial MRI brain performed without contrast using T1, T2, FLAIR, diffusion, and ADC sequences. Comparison: None Age-appropriate global atrophy and mild periventricular degenerative micro-ischemia signal bilaterally. Posterior right parietal lobe demonstrates 3.3 x 3.0 cm focus restricted signal centered around central sulcus favoring acute ischemia. Mid to anterior right cerebrum demonstrates smaller right parafalx multifocal acute ischemia. No acute intracranial hemorrhage, abnormal extra-axial fluid collection, or mass effect. Fourth ventricle is midline without hydrocephalus. 7/8 cranial nerve complex bilaterally symmetric. Normal flow-void signal within the major intracerebral circulation. Normal appearing craniocervical junction and sella turcica. Paranasal sinuses are clear. Impression: 1. Acute ischemia posterior right parietal lobe. Smaller multifocal acute ischemia seen right parafalx anteriorly. No acute hemorrhage/mass effect. 2. Atrophy and degenerative micro-ischemia within normal limits.
[2024-07-08] MEDS: LIPITOR 40MG PO SCH (21:42)
[2024-07-09 05:22] LABS: Hematocrit 35.3 % (34.1-44.9); Hemoglobin 10.7 g/dL (11.2-15.7); Mean Cell Volume 69.9 fL (79.4-94.8); Mean Corpuscular Hemoglobin 21.2 pg (25.6-32.2); Mean Corpuscular Hgb Concent. 30.3 g/dL (32.2-35.5); Platelet Count 205 x10^3/uL (182-369); Red Blood Count 5.05 x10^6/uL (3.93-5.22); Red Cell Distribution Width 19.4 % (11.7-14.4); White Blood Count 10.5 x10^3/uL (3.98-10.04)
[2024-07-09 05:49] LABS: ALBUMIN 3.9 g/dL (3.5-5.0); ANION GAP 11.5 MEQ/L (5-15); BILIRUBIN,TOTAL 0.6 mg/dL (0.2-1.3); Calcium 8.6 mg/dL (8.4-10.2); Creatinine 1 0.75 mg/dL (0.52-1.04); Potassium 4.1 mmol/L (3.5-5.1); Total Protein 6.6 g/dL (6.3-8.2)
[2024-07-09] MEDS: Toprol-Xl 25MG Tablets PO SCH (09:40)
--- NOTE | 2024-07-09 10:17 | PCM.DS ---
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 While sitting on a bar stool at breakfast, she suddenly felt like she was going to fall. The episode lasted approximately three minutes, during which she appeared unresponsive, had a glazed look, was unable to follow commands, and spoke repetitively. This was followed by confusion. She was noted to be leaning to the left with left-sided weakness, making ambulation difficult. The patient denies chest pain, shortness of breath, nausea, vomiting, or recent illness. 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 She denies prior episodes of vertigo, imbalance, or neurological symptoms. On examination on admission, left extract operator strength was noted as 2/5, while the right was 5/5. Vital signs showed significantly elevated blood pressure at 207/88 mmHg. An EKG showed evidence of old IA without acute changes. Labs, including CBC, CMP, and TSH, were unremarkable. A urine analysis (UA) showed small leukocyte esterase and trace bacteria, raising suspicion for a UTI. A CTA of the head and neck ruled out a posterior stroke, showing chronic findings such as mild bilateral carotid stenosis, a hypoplastic right vertebral artery, and old infarcts in the right parietal region and basal ganglia.Upon attempting to get up, the patient was visibly unsteady, drifted to the left side, and endorsed new generalized weakness and urinary urgency with difficulty voiding. Ceftriaxone and a fluid bolus were administered in the ED. She was admitted for the near-syncopal episode and weakness. The plan includes a neurology consultation, telemetry monitoring, and empiric IV antibiotics for a possible UTI. Today, the patient has no complaints or weakness and is awaiting an MRI of the brain, echocardiogram, and PT/OT evaluation. She is currently being managed with permissive hypertension. Troponins were elevated, and daily 81 mg ASA was started. The patient denies chest pain, shortness of breath, abdominal pain, nausea, vomiting, diarrhea, or weakness. She does not follow a hedge fund principal. 07/09/24 The patient is resting in the chair and denies any concerns. I discussed the results of her MRI with her and informed her that we are awaiting recommendations from the neurology consult. Cardiology has also been consulted due to elevated troponins. The patient denies any chest pain. An echocardiogram was performed, showing an ejection fraction (EF) of 60-65%. The patient is agreeable to wearing telemetry today, and we discussed the reason for its use to ensure her compliance. We are awaiting cardiology recommendations, and if both neurology and cardiology approve, the patient may be discharged today. The patient and her family have declined outpatient physical therapy (PT) and occupational therapy (OT). She denies any further concerns at this time. - Vitals & Intake/Output Vital Signs: Vital Signs Temperature 97.3 F 07/09/24 07:00 Pulse Rate 93 H 07/09/24 07:00 Respiratory Rate 15 07/09/24 07:00 Blood Pressure 163/77 07/09/24 07:00 O2 Sat by Pulse Oximetry 95 07/09/24 07:00 Intake & Output: Intake & Output 07/06/24 07/07/24 07/08/24 07/09/24 11:59 11:59 11:59 11:59 Intake Total 540 1220 Output Total 750 Balance 540 470 Weight 48.8 kg - Lab Result Diagrams: 07/09/24 05:11 07/09/24 05:11 Lab Results-Last 24 Hrs: Lab Results-Last 24 Hours 07/09/24 07/09/24 Range/Units 05:11 05:11 WBC 10.5 H (3.98-10.04) x10^3/uL RBC 5.05 (3.93-5.22) x10^6/uL Hgb 10.7 L (11.2-15.7) g/dL Hct 35.3 (34.1-44.9) % MCV 69.9 L (79.4-94.8) fL MCH 21.2 L (25.6-32.2) pg MCHC 30.3 L (32.2-35.5) g/dL RDW 19.4 H (11.7-14.4) % Plt Count 205 (182-369) x10^3/uL Sodium 136 (135-145) mmol/L Potassium 4.1 (3.5-5.1) mmol/L Chloride 100 (98-107) mmol/L Carbon Dioxide 28 (22-30) mmol/L Anion Gap 11.5 (5-15) MEQ/L BUN 12 (7-17) mg/dL Creatinine 0.75 (0.52-1.04) mg/dL Estimated GFR 77.0 ML/MIN Glucose 99 (74-106) mg/dL Calcium 8.6 (8.4-10.2) mg/dL Total Bilirubin 0.60 (0.2-1.3) mg/dL AST 62 H (14-36) U/L ALT 35 (0-35) U/L Alkaline Phosphatase 54 (38-126) U/L Serum Total Protein 6.6 (6.3-8.2) g/dL Albumin 3.9 (3.5-5.0) g/dL Micro Results-Entire Visit: Microbiology 07/07/24 13:04 Urine Culture - Final Clean Catch Midstream MIXED YAS; 3 OR MORE TYPES. NO PREDOMINANT O RGANISM. NO FURTHER WORKUP. PLEASE RESUBMIT IF CLINICALLY INDICATED. - Radiology Exams Ordered Rad Exams-Entire Visit: Radiology Procedures Category Date Time Status CT ANGIOGRAPHY NECK [CT] Stat Exams 07/07/24 14:17 Completed CTA HEAD W AND/OR WO CONTRAST [CT] Stat Exams 07/07/24 14:17 Completed ECHO W/2D AND DOPPLER [US] Routine Exams 07/08/24 08:11 Taken MRI BRAIN W/O CONTRAST [MRI] Urgent Exams 07/08/24 07:00 Completed - Procedures and Test Procedures and Tests throughout Hospitalization: Therapy Orders & Screens 07/07/24 18:12 PT Eval & Treat ( Order) ONCE Reason for Eval:: near syncope Diagnosis: near syncopal episode OT Eval and Treat ( Order) ONCE Comment: Physician Instructions: Reason For Exam: Diagnosis: near syncopal episode Discharge Exam General Appearance: no apparent distress, alert Neurologic Exam: alert, oriented x 3, cooperative, normal mood/affect, nml cerebellar function, sensation nml, No motor deficits Eye Exam: PERRL, EOMI, eyes nml inspection Ears, Nose, Throat Exam: normal ENT inspection, pharynx normal, moist mucous membranes Neck Exam: normal inspection, non-tender, supple, full range of motion Respiratory Exam: normal breath sounds, lungs clear, No respiratory distress Cardiovascular Exam: regular rate/rhythm, normal heart sounds Gastrointestinal/Abdomen Exam: soft, No tenderness, No mass Pelvic Exam: deferred Rectal Exam: deferred Back Exam: normal inspection, normal range of motion, No CVA tenderness, No vertebral tenderness Extremity Exam: normal inspection, normal range of motion Skin Exam: normal color, warm, dry Final Diagnosis/Problem List - Final Discharge Diagnosis/Problem (1) Near syncope Current Visit: Yes Status: Acute (2) Elevated troponin level Current Visit: Yes Status: Acute Code(s): R79.89 - OTHER SPECIFIED ABNORMAL FINDINGS OF BLOOD CHEMISTRY (3) UTI (urinary tract infection) Current Visit: Yes Status: Acute Code(s): N39.0 - URINARY TRACT INFECTION, SITE NOT SPECIFIED (4) Difficulty initiating walking Current Visit: Yes Status: Acute Code(s): R26.2 - DIFFICULTY IN WALKING, NOT ELSEWHERE CLASSIFIED (5) Generalized weakness Current Visit: Yes Status: Acute Code(s): R53.1 - WEAKNESS (6) HTN (hypertension) Current Visit: Yes Status: Acute Code(s): I10 - ESSENTIAL (PRIMARY) HYPERTENSION (7) Underweight (BMI < 18.5) Current Visit: Yes Status: Acute Code(s): R63.6 - UNDERWEIGHT; Z68.1 - BODY MASS INDEX [BMI] 19.9 OR LESS, ADULT (8) Hyperlipidemia Current Visit: Yes Status: Acute Code(s): E78.5 - HYPERLIPIDEMIA, UN SPECIFIED (9) Confusion Current Visit: Yes Status: Resolved Code(s): R41.0 - DISORIENTATION, UNSPECIFIED (10) History of acoustic neuroma Current Visit: Yes Status: Chronic Assessment & Plan: (1) Near syncope Current Visit: Yes Status: Acute Assessment & Plan: - MRI brain pending - Echo - CBC, CMP reviewed - Radiology results reviewed - 2:2 TIA? - Lipid panel reviewed - Neurology consult - Orthostats on admission - MRI brain 07/08 Impression: 1. Acute ischemia posterior right parietal lobe. Smaller multifocal acute ischemia seen right parafalx anteriorly. No acute hemorrhage/mass effect. 2. Atrophy and degenerative micro-ischemia within normal limits. (2) Elevated troponin level Current Visit: Yes Status: Acute Assessment & Plan: - Trops 0.015, 0.038, 0.144, 0.165, 0.146 - Pt denies CP - EKG - Tele - Echo - ASA 81 mg daily started 07/09 - Cards consult for elevated trop with + CVA - Echo: TRANSTHORACIC ECHOCARDIOGRAM 07/08/2024: 1. Normal chamber sizes. 2. Mild concentric left ventricular hypertrophy. 3. Normal left ventricular systolic function without obvious wall motion abnormalities. Estimated EF 60-65%. 4. Mild diastolic dysfunction. 5. Normal right ventricular systolic function. 6. Mild aortic sclerosis without stenosis. 7. Doppler: Mild aortic, mitral, and tricuspid regurgitation. 8. Normal PA systolic pressure (27 mmHg). 9. Normal right atrial pressure (3 mmHg). 10. No pericardial effusion. Code(s): R79.89 - OTHER SPECIFIED ABNORMAL FINDINGS OF BLOOD CHEMISTRY (3) UTI (urinary tract infection) Current Visit: Yes Status: Acute Assessment & Plan: - Ceftriaxone stopped- UC negative Code(s): N39.0 - URINARY TRACT INFECTION, SITE NOT SPECIFIED (4) Difficulty initiating walking Current Visit: Yes Status: Acute Assessment & Plan: - PT/OT evals - MRI brain pending - CTA head 1. No evidence of significant vascular abnormalities, acute infarct, or hemorrhage. 2. Diffuse calcified atherosclerotic changes of the bilateral internal carotid arteries are causing mild stenosis (20-30% stenosis on right side and 30-40% on left side) of the cavernous portion of the internal carotid arteries. 3. The proximal part of the left common carotid artery harbors a retroesophageal and retropharyngeal course while indenting the right oropharyngeal wall. 4. Bilateral calcified atherosclerotic changes seen at the carotid bulbs cause insignificant narrowing, about 20-30% stenosis bilaterally evident to more on the right side. 5. Hypoplastic right vertebral artery 6. Right parietal wedge-shaped cortical and subcortical hypodensity indicating old infarction. 7. 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 8. Mild involution age-related brain changes with mild deep white matter microvessle ischemia. - CT angiography: reviewed 1. No evidence of significant vascular abnormalities, acute infarct, or hemorrhage. 2. Diffuse calcified atherosclerotic changes of the bilateral internal carotid arteries are causing mild stenosis (20-30% stenosis on the right side and 30-40% on left side) of the cavernous portion of the internal carotid arteries. 3. The proximal part of the left common carotid artery harbors a retroesophageal and retropharyngeal course while indenting the right oropharyngeal wall. 4. Hypoplastic right vertebral artery 5. Bilateral calcified atherosclerotic changes seen at the carotid bulbs cause insignificant narrowing, about 20-30% stenosis bilaterally evident to more on the right side. 6. Right parietal wedge-shaped cortical and subcortical hypodensity indicating old infarction. 7. 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 8. Mild involution age-related brain changes with mild deep white matter microvessle ischemia. 07/09 - PT/OT notes read - Pt refuses OP f/u Code(s): R26.2 - DIFFICULTY IN WALKING, NOT ELSEWHERE CLASSIFIED (5) Generalized weakness Current Visit: Yes Status: Acute Assessment & Plan: - CTA head and CT angiography reviewed - PT/OT eval - MRI brain reviewed Code(s): R53.1 - WEAKNESS (6) HTN (hypertension) Current Visit: Yes Status: Acute Assessment & Plan: - Allow permissive HTN for now per protocol 07/09 - Started metoprolol for HTN Code(s): I10 - ESSENTIAL (PRIMARY) HYPERTENSION (7) Underweight (BMI < 18.5) Current Visit: Yes Status: Acute Assessment & Plan: - Ensure high protein with meals - Nutrition consult Code(s): R63.6 - UNDERWEIGHT; Z68.1 - BODY MASS INDEX [BMI] 19.9 OR LESS, ADULT (8) Hyperlipidemia Current Visit: Yes Status: Acute Assessment & Plan: - LDL 121 - Cholesterol 207 - Started high dose statin d/t stroke risk Code(s): E78.5 - HYPERLIPIDEMIA, UNSPECIFIED (9) Confusion Current Visit: Yes Status: Resolved Assessment & Plan: - resolved Code(s): R41.0 - DISORIENTATION, UNSPECIFIED (10) History of acoustic neuroma Current Visit: Yes Status: Chronic Assessment & Plan: - patient has a history of acoustic neuroma, there are no signs of cranial nerve dysfunction or vestibular symptoms suggestive of recurrence or complications related to that condition -CTA head/neck as stated above - no evidence on exam or imaging to suggest reactivation or new growth Code(s): Z86.018 - PERSONAL HISTORY OF OTHER BENIGN NEOPLASM (11) CVA (cerebral vascular accident) Current Visit: Yes Status: Acute Assessment & Plan: - MRI 07/08/24 Impression: 1. Acute ischemia posterior right parietal lobe. Smaller multifocal acute ischemia seen right parafalx anteriorly. No acute hemorrhage/mass effect. 2. Atrophy and degenerative micro-ischemia within normal limits. - Neurology re-consulted - Original consult still pending - Will D/C with ASA and Plavix - Consider ARTURO or ARB if BP does not improve OP - OP Holter monitor- RT to set up prior to d/c Code(s): I63.9 - CEREBRAL INFARCTION, UNSPECIFIED - Discharge Discharge Date: 07/09/24 Disposition: Home, Self-Care Condition: Good Prescriptions: New Aspirin EC 81 mg [Ecotrin 81 mg] 81 mg PO QAM 30 Days #30 tablet Atorvastatin Calcium [Lipitor 40Mg] 80 mg PO QHS 30 Days #30 tablet Metoprolol Succinate 25 mg Xl* [Toprol-Xl 25MG Tablets] 25 mg PO DAILY 30 Days #30 tablet Continue Azelastine/Fluticasone [Azelastin-Flutic 137-50Mcg Spr] 1 spray IH BID Instructions: Stroke - Discharge instructions Follow up with: ANITHA BURNETT MD [NON-STAFF PHY W/O PRIVILEGES] - 08/16/24 10:30 am KATHERINE ZIMMER MD [NON-STAFF PHY W/O PRIVILEGES] - 07/31/24 1:00 pm ([address] )
[2024-07-09 11:51] VITALS: RESP 17; O2SAT 97
--- NOTE | 2024-07-09 13:31 | PCM.CONS ---
History of Present Illness - Date of Consult Date of Encounter: 07/09/24 Consulting Resident Advisor: PHILIPPE RODRIGUEZ MD Requesting Provider: Attending Provider: BARBRA CORREA MD Primary Care Provider: PCP: NO FAMILY DOCTOR Consent was: Given for this tele-med encounter - Consult Narrative Reason for Consult: Elevated troponin HPI: Patient is a 89F who denies fevers, chills, nausea, vomiting, diarrhea, syncope, presyncope, dysphagia,odynophagia, orthopnea, paroxysmal nocturnal dyspnea, shortness of breath, chest pain, refluxsymptoms, belly pain, dysuria, hematuria, melena, hematochezia, seizures, paralysis, or other neurological changes. All other systems have been reviewed and are negative. cc:: The requesting physician will be sent a copy of the consult. 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 - Past Surgical History Past Surgical History: Yes Neuro Surgical History: No Pertinent History Cardiac History: Cardiac Stent Respiratory Surgery: No Pertinent History GI Surgical History: No Pertinent History Genitourinary Surgical Hx: No Pertinent History Musculskeletal Surgical Hx: Orthopedic Surgery Female Surgical History: No Pertinent History Other Surgical History: pins in one shoulder, unsure which Significant Family History: heart disease - Social History Smoking Status: Never smoker Exposure to second hand smoke: No Alcohol: Occasionally Drug Use: none - Social Determinants of Health Will the patient participate in the screening: Yes Do you worry about a steady place to live?: No Do you have any problems with any of the following?: No known problems In the past 12 months,have you had to go without utilities?: No Have you or anyone in your house had to go without enough: No Transportation Issues: No Has anyone in your support network made you feel unsafe?: No Does the patient want assistance with any of the above?: No Medications & Allergies Home Medications: Home Medication List Azelastine/Fluticasone [Azelastin-Flutic 137-50Mcg Spr] 1 spray IH BID 07/07/24 [History Confirmed 07/07/24] Aspirin EC 81 mg [Ecotrin 81 mg] 81 mg PO QAM 30 Days #30 tablet 07/09/24 [Rx] Atorvastatin Calcium [Lipitor 40Mg] 80 mg PO QHS 30 Days #30 tablet 07/09/24 [Rx] Clopidogrel Bisulfate [Plavix] 75 mg PO DAILY 30 Days #30 tablet 07/09/24 [Rx] Metoprolol Succinate 25 mg Xl* [Toprol-Xl 25MG Tablets] 25 mg PO DAILY 30 Days #30 tablet 07/09/24 [Rx] Allergies/Adverse Reactions: Allergies Allergy/AdvReac Type Severity Reaction Status Date / Time No Known Drug Allergies Allergy Unverified 07/07/24 12:11 Exam - Vitals Vital Signs: Vital Signs - 24 hr Temp Pulse Resp BP BP Pulse Ox 07/09/24 11:00 97.4 F 75 17 148/65 97 07/09/24 07:00 97.3 F 93 H 15 163/77 95 07/09/24 03:49 97.5 F 79 18 157/67 94 L 07/08/24 23:42 97.8 F 79 18 164/72 93 L 07/08/24 19:54 98.9 F 86 18 152/68 187/84 95 07/08/24 16:51 97.5 F 81 16 123/58 94 L SpO2: 97 Results Vital Signs: Vital Signs - 24 hr Temp Pulse Resp BP BP Pulse Ox 07/09/24 11:00 97.4 F 75 17 148/65 97 07/09/24 07:00 97.3 F 93 H 15 163/77 95 07/09/24 03:49 97.5 F 79 18 157/67 94 L 07/08/24 23:42 97.8 F 79 18 164/72 93 L 07/08/24 19:54 98.9 F 86 18 152/68 187/84 95 07/08/24 16:51 97.5 F 81 16 123/58 94 L Pain Assessment - Last Documented Pain Intensity 0 Intake and Output: Intake & Output 07/07/24 07/08/24 07/09/24 07/10/24 11:59 11:59 11:59 11:59 Intake Total 540 1220 Output Total 750 Balance 540 470 Weight 48.8 kg 48.8 kg LAB: I have reviewed the Labs in [employer]. Radiology Exams: Radiology Procedures Category Date Time Status CT ANGIOGRAPHY NECK [CT] Stat Exams 07/07/24 14:17 Completed CTA HEAD W AND/OR WO CONTRAST [CT] Stat Exams 07/07/24 14:17 Completed ECHO W/2D AND DOPPLER [US] Routine Exams 07/08/24 08:11 Taken MRI BRAIN W/O CONTRAST [MRI] Urgent Exams 07/08/24 07:00 Completed TTE 07/08/2024: 1. Normal chamber sizes. 2. Mild concentric left ventricular hypertrophy. 3. Normal left ventricular systolic function without obvious wall motion abnormalities. Estimated EF 60-65%. 4. Mild diastolic dysfunction. 5. Normal right ventricular systolic function. 6. Mild aortic sclerosis without stenosis. 7. Doppler: Mild aortic, mitral, and tricuspid regurgitation. 8. Normal PA systolic pressure (27 mmHg). 9. Normal right atrial pressure (3 mmHg). 10. No pericardial effusion. Brain MRI 07/08/2024: 1. Acute ischemia posterior right parietal lobe. Smaller multifocal acute ischemia seen right parafalx anteriorly. No acute hemorrhage/mass effect. 2. Atrophy and degenerative micro-ischemia within normal limits. CTA of Head and Neck 07/07/2024: 1. No evidence of significant vascular abnormalities, acute infarct, or hemorrhage. 2. Diffuse calcified atherosclerotic changes of the bilateral internal carotid arteries are causing mild stenosis (20-30% stenosis on the right side and 30-40% on left side) of the cavernous portion of the internal carotid arteries. 3. The proximal part of the left common carotid artery harbors a retroesophageal and retropharyngeal course while indenting the right oropharyngeal wall. 4. Hypoplastic right vertebral artery 5. Bilateral calcified atherosclerotic changes seen at the carotid bulbs cause insignificant narrowing, about 20-30% stenosis bilaterally evident to more on the right side. 6. Right parietal wedge-shaped cortical and subcortical hypodensity indicating old infarction. 7. 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 8. Mild involution age-related brain changes with mild deep white matter microvessle ischemia. Tracing 1 Attestation: I have reviewed this EKG and interpreted as documented below. EKG Narrative: ECGs: 07/09/2024: NSR with short DE at 77 bpm. LVH with strain. possible old inferior infarct. 07/07/2024: NSR with short DE at 93 bpm. Diffuse repolarization abnormality suggestive of severe global ischemia. Multi-Disciplinary Progress Notes: Multi-Disciplinary Progress Notes 07/09/24 10:30 (created 07/09/24 12:36) Case Management Note by Yuliya Hooker/Perry PATIENT AND DAUGHTER- THEY BOTH CONTINUE TO DENY ANY NEW NEEDS AT TIME OF DC. PATIENT TO RETURN HOME WITH HER DAUGHTERS TO CARE FOR HER. THEY REFUSE HHC OR OTPT PHYSICAL THERAPY AT THIS TIME- THEY ARE INTERESTED IN HOME EXERCISES. PHYSICAL THERAPY NOTIFIED Initialized on 07/09/24 12:36 - END OF NOTE 07/08/24 20:43 OT Plan of Care Note by Francisco Javier (L#[id number])[facility] OT Eval OT Inpatient Eval and POC Start: 07/07/24 18:12 Freq: ONCE Status: Complete Protocol: Created 07/07/24 18:16 ED (Rec: 07/07/24 18:16 ED [id number]) Document 07/08/24 20:33 KA (Rec: 07/08/24 20:43 KA [id number]) OT Evaluation Subjective NAEBEL IS AGREEABLE TO OT EVALUATION THIS DATE; DAUGHTER , WANDA, IS PRESENT TO ASSIST WITH HISTORY. *MRI ACUTE ISCHEMIA POSTERIOR RIGHT PARIETAL LOBE; SMALLER ACUTE ISCHEMIA RIGHT PARAFALX ANTERIORORLY Pertinent Past Medical History SEE PMH BELOW: WANDA REPORTS THAT NABEEL IS ON A WAITING LIST FOR A NEUROLOGIST TO BE ASSESSED FOR DEMENTIA Prior Level of Function NABEEL RESIDES WITH HER 2 DAUGHTERS, ALTERNATING EVERY OTHER WEEK TO THEIR HOME. THEY BOTH ASSIST WITH BATHING TASKS NEEDED, LAUNDRY, AND MEAL MANAGEMENT. WANDA REPORTS THAT NABEEL WAS DRIVING UP UNTIL THE MOST RECENT HOSPITALIZATION. SHE OWNS A ROLLATOR, BUT ONLY USED IT WHEN OUTSIDE THE HOME. Equipment at Home Prior to Admission Walker,Raised Toilet Seat, Shower Chair Home Setup Ctjb-Zg-Popgnk Date 07/08/24 Feeding WFL Grooming WFL Bathing WFL Comment SBA Dressing WFL Toileting WFL Bed Mobility WFL Toilet Transfers WFL Functional Transfers WFL Range of Motion WFL Coordination FINGER OPPOSITION: WFL UE ANDRE: WFL FINGER TO NOSE: WFL LE ANDRE: WFL Functional Strength RIGHT UE: 4+/5 MMT LEFT UE: 4-/5 MMT (NOTABLE WEAKNESS IN LEFT COMPARED TO RIGHT UE) Functional Endurance FAIR (+); PATIENT TOLERANTES APPROXIMATELY 5-10 MINUTES OF STANDING FUNCTIONAL TASKS WITHIN ROOM. Cognition ALERT AND ORIENTED X 4 Pain NO REPORTED PAIN Objective Data/Standardized Assessment(s [place]: / INDICITING HIGH ) LEVEL OF INDEPENDENCE Comment PATIENT OBSERVED WITH LEFT LATERAL LEAN WHILE SITTING IN CHAIR AND SITTING AT EDGE OF BED. FREQUENTLY POSTERIOR LEAN AND LOB. PATIENT TRANSFERS SIT<>sTAND POSTERIOR LEAN NOTED. DAUGHTER REPORTS THAT THE ONSET IS NEW, BUT HER FUNCTION HAS RETURNED TO BASELINE. OT Plan Of Care Date of Evaluation 07/08/24 Treatment Diagnosis NEAR SYNCOPAL EPISODE Precaution/Orders as written FALL RISK Teaching Recipient Patient,Family Patient is Aware of Diagnosis and Yes Prognosis Patient is receptive to Plan of Care and Yes contributory towards OT goals Functional Problem List PATIENT PRESENTS WITH MILD LEFT UE WEAKNESS IN COMPARISON TO RIGHT UE, AND PRESENTS WITH LEFT LATERAL LEAN WHILE SEATED AND DURING SIT<>sTAND T /FS. Therapuetic Interventions SELF CARE, THERAPEUTIC ACTIVITY, THERAPEUTIC EXERCISE , NEURO RE-ED. OT INSTRUCTED PATIENT AND DAUGHTER ON SEATED BALANCE TRAINING INCLUDING LEFT LATERAL ELBOW LEAN INTO UPRIGHT SITTING. ADDITIONAL EXERCISES WITH POSTERIOR LEAN WITH RETURN TO MIDLINE BY HOLDING ONTO THERAPIST ARMS. PATIENT COMPLETES 10 REPS IN EACH POSITION. Functional Goals of Treatment 1) NABEEL WILL DEMONSTRATE COMPLIANCE WITH HEP IN ORDER TO FACILITATE SAFE D/C HOME ( BY 07/12/24). Frequency/Duration 1X ONLY Rehabilitation Potential for Goals/ Good Barriers to Progress Discharge Recommendations/Plan OT RECOMMENDS HHT VS OP THERAPY TO ADDRESS PATIENT'S LEFT UE WEAKNESS AND LEFT LATERAL LEAN; HOWEVER, PATIENT AND DAUGHTER NOT OPEN TO SERVICES AT THIS TIME. 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 Past Surgical History Yes Hx Anesthesia Reactions No Neurological Surgical History No Pertinent History ENT Surgical History No Pertinent History Respiratory Surgical History No Pertinent History Cardiac Surgical History Cardiac Stent Gastrointestinal Surgical History No Pertinent History Genitourinary Surgical History No Pertinent History Female Surgical History No Pertinent History Musculoskeletal Surgical History Orthopedic Surgery Other Surgical History pins in one shoulder, unsure which Alcohol Occasionally Drug Use none Initialized on 07/08/24 20:43 - END OF NOTE 07/08/24 20:19 Radiology Note by PHILIPPE RODRIGUEZ TRANSTHORACIC ECHOCARDIOGRAM 07/08/2024: 1. Normal chamber sizes. 2. Mild concentric left ventricular hypertrophy. 3. Normal left ventricular systolic function without obvious wall motion abnormalities. Estimated EF 60-65%. 4. Mild diastolic dysfunction. 5. Normal right ventricular systolic function. 6. Mild aortic sclerosis without stenosis. 7. Doppler: Mild aortic, mitral, and tricuspid regurgitation. 8. Normal PA systolic pressure (27 mmHg). 9. Normal right atrial pressure (3 mmHg). 10. No pericardial effusion. Philippe Rodriguez MD [facility] Initialized on 07/08/24 20:19 - END OF NOTE Assessment & Plan (1) Elevated troponin level Status: Acute Assessment & Plan: Presentation is not consistent with acute coronary syndrome. Most likely represents demand ischemia caused by her severe hypertension in the setting of her CVA at presentation. 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 Denies any angina since her last PCI on 2004. ECG at presentation consistent with severe global ischemia vs worsened strain pattern in the presence SBP 190-220 mmHg. She does have MARQUEZ when showering. Agree with continuing aspirin and adding metoprolol and high intensity statin to her medical regimen. She will need to follow-up with a local city engineer to evaluate for progression of her CAD (coronary CTA vs chemical stress test). Code(s): I25.10 - ATHSCL HEART DISEASE OF [place] CORONARY ARTERY W/O ANG PCTRS (3) HTN (hypertension) Status: Acute Assessment & Plan: Markedly elevated with her ischemic CVA. Mild to moderately elevated today. Evidence of hypertensive heart disease on her echocardiogram with mild concentric LVH. Off hypertensives at admission. Agree with treating with metoprolol + an ARB/ARTURO-I pending neuro evaluation. skilled nursing target < 130/80. Code(s): I10 - ESSENTIAL (PRIMARY) HYPERTENSION (4) CVA (cerebral vascular accident) Status: Acute Assessment & Plan: As per neuro. Agree with aspirin and Plavix x 21 days. Can remain on Plavix only afterwards. Code(s): I63.9 - CEREBRAL INFARCTION, UNSPECIFIED - Encounter Encounter: "The entirety of this encounter was performed via Telemedicine using audio and visual " Patient granted permission for this type of encounter. Her daughter was in room and 2 other daughters on phone. Case discussed with Dedra Dickerson NP. OK for discharge from the cardiology standpoint. Philippe Rodriguez MD [facility] [phone]
--- NOTE | 2024-07-09 16:47 | PCM.NOTE ---
Date and Time: 07/09/24 162 Subjective Assessment: 89 y/o F admitted 07/07/24 for transient L sided weakness and "glazed over" appearance for a few min followed by a few min of confusion is being evaluated for syncope and stroke. MRI brain demonstrated small area of acute ischemia. No further episodes of confusion. Mild L weakness has resolved. Denies INIGUEZ, CP, SOB. She is tolerating atrovastatin. Family has many questions about stroke and driving restrictions for syncope/confusional episode - discussed at length with one daughter at bedside and other daughter on speaker phone, questions answered. Objective Exam - Vital Signs Vital Signs: Vital Signs - 24 hr 07/08/24 07/08/24 07/08/24 16:51 19:54 23:42 Temperature 97.5 F 98.9 F 97.8 F Pulse Rate 81 86 79 Respiratory 16 18 18 Rate Blood Pressure 123/58 152/68 164/72 [Left Arm] Blood Pressure 187/84 [Right Arm] O2 Sat by Pulse 94 L 95 93 L Oximetry 07/09/24 07/09/24 07/09/24 03:49 07:00 11:00 Temperature 97.5 F 97.3 F 97.4 F Pulse Rate 79 93 H 75 Respiratory 18 15 17 Rate Blood Pressure 157/67 163/77 148/65 [Left Arm] Blood Pressure [Right Arm] O2 Sat by Pulse 94 L 95 97 Oximetry 07/09/24 16:00 Temperature Pulse Rate Respiratory Rate Blood Pressure [Left Arm] Blood Pressure [Right Arm] O2 Sat by Pulse 97 Oximetry - Physical Exam General: no acute distress Mental Status: alert, awake and oriented, memory at baseline (per family has had some forgetfulness for at least several months), fluent speech, no dysarthria Cranial nerves: extra ocular movements intact, unable to visualize fundi through telemedicine, sensation intact, face is symmetric, tongue midline, No hearing intact (hard of hearing at baseline) Motor: antigravity in all 4 ext, no drift noted, no pronator drift Sens:: intact to touch in all 4 Gait: deferred Objective Data - Labs Lab/Micro Results: Lab Results-Last 24 Hours 07/09/24 07/09/24 Range/Units 05:11 05:11 WBC 10.5 H (3.98-10.04) x10^3/uL RBC 5.05 (3.93-5.22) x10^6/uL Hgb 10.7 L (11.2-15.7) g/dL Hct 35.3 (34.1-44.9) % MCV 69.9 L (79.4-94.8) fL MCH 21.2 L (25.6-32.2) pg MCHC 30.3 L (32.2-35.5) g/dL RDW 19.4 H (11.7-14.4) % Plt Count 205 (182-369) x10^3/uL Sodium 136 (135-145) mmol/L Potassium 4.1 (3.5-5.1) mmol/L Chloride 100 (98-107) mmol/L Carbon Dioxide 28 (22-30) mmol/L Anion Gap 11.5 (5-15) MEQ/L BUN 12 (7-17) mg/dL Creatinine 0.75 (0.52-1.04) mg/dL Estimated GFR 77.0 ML/MIN Glucose 99 (74-106) mg/dL Calcium 8.6 (8.4-10.2) mg/dL Total Bilirubin 0.60 (0.2-1.3) mg/dL AST 62 H (14-36) U/L ALT 35 (0-35) U/L Alkaline Phosphatase 54 (38-126) U/L Serum Total Protein 6.6 (6.3-8.2) g/dL Albumin 3.9 (3.5-5.0) g/dL Microbiology 07/07/24 13:04 Urine Culture - Final Clean Catch Midstream MIXED YAS; 3 OR MORE TYPES. NO PREDOMINANT ORGANISM. NO FURTHER WORKUP. PLEASE RESUBMIT IF CLINICALLY INDICATED. - Other Procedures & Test Other Procedures & Test: Respiratory Therapy 07/09/24 16:16 Holter Monitor ONCE - Radiology Orders Radiology Orders: Radiology Procedures Category Date Time Status ECHO W/2D AND DOPPLER [US] Routine Exams 07/08/24 08:11 Taken MRI BRAIN W/O CONTRAST [MRI] Urgent Exams 07/08/24 07:00 Completed MRI images reviewed with pt and family. Restricted diffusion c/w acute ischemic stroke. Chronic ischemic strokes also noted. Echo report reviewed and unremarkable for stroke etiology. Assessment & Plan (1) CVA (cerebral vascular accident) Current Visit: Yes Status: Acute Assessment & Plan: - Continue ASA 81mg and plavix 75mf daily for 21 days. Then would recommend continuing Plavix and discontinuing ASA unless cardiology prefers she also remain on ASA. - atorvastatin 80 mg daily if tolerated. Goal LDL <70. IF not tolerating high dose, try lower dose atorvastatin +/- Zetia. - consider prolonged cardiac monitoring at discharge - Continue to optimize BP and lipids for secondary stroke prevention. If additional BP agent needed, consider ACEI/ARB. - PT/OT/MACHINE DEBURRER - outpatient neuro f/u Please call if additional questions or concerns Code(s): I63.9 - CEREBRAL INFARCTION, UNSPECIFIED (2) HTN (hypertension) Current Visit: Yes Status: Acute Code(s): I10 - ESSENTIAL (PRIMARY) HYPERTENSION (3) Hyperlipidemia Current Visit: Yes Status: Acute Code(s): E78.5 - HYPERLIPIDEMIA, UNSPECIFIED (4) Near syncope Current Visit: Yes Status: Acute Assessment & Plan: - Consider outpatient EEG. - Pt and family counseled on avoiding driving or other dangerous activities for now due to unexplained altered awareness per state law. - Encounter Encounter: "The entirety of this encounter was performed via Telemedicine using audio and visual "
[2024-07-09 16:48] VITALS: BP 139/63; PULSE 82; TEMP 97.7
[2024-07-09] MEDS: PLAVIX Tablet PO ONE (17:42)
== END 2024-07-09 18:06 | disposition home or self-care (01) ==
LOC: ED 11:51 → MED SURG 17:21
PROVIDERS: ADMIT Internal Medicine; ATTEND Internal Medicine
DX: R55 Syncope and collapse (principal); R79.89 Other specified abnormal findings of blood chemistry; N39.0 Urinary tract infection, site not specified; R26.2 Difficulty in walking, not elsewhere classified; R53.1 Weakness; I10 Essential (primary) hypertension; R63.6 Underweight; Z68.1 Body mass index [BMI] 19.9 or less, adult; E78.5 Hyperlipidemia, unspecified; R41.0 Disorientation, unspecified; Z86.018 Personal history of other benign neoplasm; I63.9 Cerebral infarction, unspecified; I25.2 Old myocardial infarction; Z79.899 Other long term (current) drug therapy
CPT/HCPCS: 36415; 70496; 70498; 70551; 80053; 80061; 81015; 82550; 82947; 83036; 83605; 83721; 83735; 84439; 84443; 84484; 85025; 85027; 87086; 93005; 93242; 93268; 93306; 97110; 97161; 97165; 99285; G0378; Q3014; 99284; J0696; A9270-GY